=== PATIENT | female | born 1965 | race Caucasian/White ===

== ENCOUNTER 2017-11-01 13:11 | Day surgery (SDC) | payer MEDICAID ==
[~2017-11-01] VITALS: Ht 172.7 cm; Wt 134.1 kg
[~2017-11-01 13:11] MED LIST: ASTNS; DIPH-423 PO; FLUO15OI15 TP; INHA1EAC16 MC; LORA10TA7 PO; MONT10TA21 PO; OLAN2.5T3 PO; ONDA8TAB6 PO; PRED10TA PO; TEG100T PO; WALKERFR
[2017-11-01 13:26] VITALS: BP 139/70
[2017-11-01] MEDS ORDERED: MIDAZolam 5mg/5ml vial ONE (14:25)
[2017-11-01 14:30] VITALS: BP 138/80
[2017-11-01 14:40] VITALS: BP 125/68
== END 2017-11-01 14:55 | disposition home or self-care (01) ==
LOC: GI LAB 13:11
PROVIDERS: ATTEND Internal Medicine Gastroenterology
DX: K62.89 Other specified diseases of anus and rectum (principal); F10.21 Alcohol dependence, in remission; F41.9 Anxiety disorder, unspecified; M19.90 Unspecified osteoarthritis, unspecified site; Z98.51 Tubal ligation status; Z90.49 Acquired absence of other specified parts of digestive tract; Z93.2 Ileostomy status; Z88.0 Allergy status to penicillin; Z87.891 Personal history of nicotine dependence; Z88.6 Allergy status to analgesic agent; Z91.018 Allergy to other foods; Z79.899 Other long term (current) drug therapy; Z98.890 Other specified postprocedural states
CPT/HCPCS: 45330; J2250; A4620

== ENCOUNTER 2018-04-25 09:00 | Inpatient (IN) | payer MEDICAID ==
[~2018-04-25] VITALS: Ht 172.7 cm; Wt 130.6 kg
[2018-04-25 09:35] LABS: BASOPHILS % (AUTO) 0.3 % (0-1); EOSINOPHILS % (AUTO) 0 % (0-6); HEMATOCRIT 37.7 % (35.0-45.0); HEMOGLOBIN 12.7 g/dl (12.0-16.0); LYMPHOCYTES # (AUTO) 0.7 X10'3 (1.1-4.8); MEAN CORPUSCULAR HEMOGLOBIN 29.4 PG (27.0-31.0); MEAN CORPUSCULAR HGB CONC 33.6 % (33.0-36.5); MEAN CORPUSCULAR VOLUME 87.5 FL (78-98); MEAN PLATELET VOLUME 8.5 FL (7.4-10.4); MONOCYTES # (AUTO) 0.8 X10'3 (0-0.9); MONOCYTES % (AUTO) 9.7 % (2-12); NEUTROPHILS # (AUTO) 6.4 X10'3 (1.8-7.7); PLATELET COUNT 212 X10'3 (140-440); RED BLOOD COUNT 4.31 X10'6 (4.20-5.60); RED CELL DISTRIBUTION WIDTH 13.3 % (11.5-14.5); WHITE BLOOD COUNT 7.9 X10'3 (4.5-11.0)
[2018-04-25] MEDS ORDERED: normal saline 1000ML IV soln IVB ONE (09:40)
[2018-04-25 09:46] LABS: ALANINE AMINOTRANSFERASE 19 U/L (12-78); ALBUMIN 3.3 G/DL (3.4-5.0); ALBUMIN/GLOBULIN RATIO 0.6 (1.1-1.5); ALKALINE PHOSPHATASE 124 IU/L (46-116); ANION GAP 10 (8-16); ASPARTATE AMINO TRANSFERASE 23 U/L (10-37); BILIRUBIN,TOTAL 0.5 MG/DL (0.1-1.0); BLOOD UREA NITROGEN 12 MG/DL (7-18); BUN/CREATININE RATIO 12.2 (6.6-38.0); CHLORIDE 101 MMOL/L (99-107); CREATININE 0.98 MG/DL (0.40-0.90); GLUCOSE 138 MG/DL (70-104); POTASSIUM 3.8 MMOL/L (3.5-5.1); SODIUM 138 MMOL/L (135-145); TOTAL CARBON DIOXIDE 26.6 MMOL/L (24-32); eGFR 59 ML/MIN
[2018-04-25 09:47] LABS: URINE HCG NEGATIVE (NEG)
[2018-04-25 09:49] LABS: CLARITY,URINE CLOUDY (Clear); COLOR,URINE YELLOW (Yellow); GLUCOSE, URINE NEGATIVE (Neg); KETONES,URINE NEGATIVE (Neg); LEUKOCYTE ESTERASE ,URINE LARGE (Neg); NITRITES, URINE NEGATIVE (Neg); OCCULT BLOOD,URINE MODERATE (Neg); PROTEIN,URINE 30 mg/dl (Neg); UROBILINOGEN,URINE 0.2 E.U/dL (0.2-1.0)
[2018-04-25 09:53] LABS: UA COLLECTION TYPE CLN CATCH MIDSTREAM
[2018-04-25] MEDS ORDERED: morphine 4 MG/ML inj SYRINge IV ONE (09:55)
[2018-04-25] MEDS ORDERED: ondansetron/PF 4mg/2ml inj IV ONE (09:55)
[2018-04-25 09:56] LABS: BACTERIA,URINE 3+ /HPF (Neg); SQUAMOUS EPITHELIAL CELL,UR FEW /LPF (FEW); WBC,URINE TNTC /HPF (0-4)
[2018-04-25 09:57] LABS: WBC CLUMPS,URINE MODERATE /HPF (NEGATIVE)
[2018-04-25 10:20] LABS: INR 1.2 INR; PROTHROMBIN TIME 11.6 SECONDS (9.0-12.0)
[2018-04-25] MEDS ORDERED: acetaminophen 325mg tablet PO ONE ×2 (10:20→21:10)
[2018-04-25] MEDS ORDERED: gentamicin inj 500 MG in normal saline 100ml IV soln 100 ML IV STA (12:50)
[2018-04-25] MEDS ORDERED: levoFLOXACIN-Levaquin 500mg/D5 100 ML IV ONE (13:00)
[2018-04-25] MEDS ORDERED: metroNIDAZOLE 500mg tablet PO ONE (13:00)
[2018-04-25] MEDS ORDERED: PROM25TA14 PEG (13:48)
[2018-04-25] MEDS ORDERED: PANT40TA4 PO (13:48)
[2018-04-25] MEDS ORDERED: OMEP40CA37 PO (13:48)
[2018-04-25] MEDS ORDERED: MYL80T PO (13:48)
[2018-04-25] MEDS ORDERED: pneumococcal 23-VAL P-sac vacc 25 mcg/0.5ml vial IMVAC ONE (14:35)
[2018-04-25] MEDS ORDERED: montelukast 10mg tablet PO PRN (14:55)
[2018-04-25] MEDS ORDERED: HYDROcodone/acetaminophen 5mg/325mg tablet PO PRN (15:00)
[2018-04-25] MEDS ORDERED: magnesium 4gm in 100ml NS 100 ML IV PRN (15:00)
[2018-04-25] MEDS ORDERED: HYDROmorphone 1 mg/ml syringe IV PRN ×2 (15:00)
[2018-04-25] MEDS ORDERED: magnesium hydroxide 30ml (MOM) UD suspension PO PRN (15:00)
[2018-04-25] MEDS ORDERED: magnesium Cl slow-release 64mg tablet PO PRN (15:00)
[2018-04-25] MEDS ORDERED: metoclopramide 5 mg/ml inj IV PRN (15:00)
[2018-04-25] MEDS: K and/or MAG REPLACEMENT MC SCH (15:00)
[2018-04-25] MEDS ORDERED: potassium Cl 20 mEq SR tablet PO PRN ×2 (15:00)
[2018-04-25] MEDS ORDERED: magnesium 1gm/100ml D5W IVPB 100 ML IV PRN (15:00)
[2018-04-25] MEDS ORDERED: morphine 2 MG/ML inj. syringe IV PRN ×2 (15:00)
[2018-04-25] MEDS ORDERED: acetaminophen 325mg tablet PO PRN ×2 (15:00)
[2018-04-25] MEDS ORDERED: diphenhydrAMINE 50 mg/ml inj IV PRN (15:00)
[2018-04-25] MEDS ORDERED: acetaminophen 650mg rectal suppository RC PRN (15:00)
[2018-04-25] MEDS ORDERED: HYDROcodone/acetaminophen 10/325mg tab PO PRN (15:00)
[2018-04-25] MEDS ORDERED: diphenhydrAMINE 25mg capsule PO PRN (15:00)
[2018-04-25] MEDS ORDERED: potassium Cl 40MEQ/NS 500ml 500 ML IV PRN ×2 (15:00)
[2018-04-25] MEDS ORDERED: mag hydrox/Alum hydrox/simeth 30ml oral suspension PO PRN (15:00)
[2018-04-25 20:00] VITALS: BP 141/81
[2018-04-25] MEDS: metroNIDAZOLE-Flagyl 500mg/NS 100 ML IV SCH (20:40)
[2018-04-25] MEDS: dextrose 5%-normal saline 1,000 ML IV SCH ×2 (20:47→23:32)
[2018-04-25] MEDS ORDERED: temazepam 15mg capsule PO PRN (21:00)
[2018-04-25] MEDS: simethicone 80mg chew tab PO SCH ×2 (21:00→21:55)
[2018-04-25] MEDS ORDERED: normal saline 500ml IV soln 1,000 ML IV ONE (21:10)
[2018-04-25] MEDS: pantoprazole 40mg Tablet.DR PO SCH (21:55)
[2018-04-25] MEDS: olanzapine 10mg tablet PO SCH (21:55)
[2018-04-25] MEDS: carBAMazepine 100mg chewable tablet PO SCH (21:58)
[2018-04-25] MEDS: ondansetron/PF 4mg/2ml inj IV PRN (22:00)
[2018-04-25] MEDS: heparin, porcine 5000 units/ml vial SQ SCH (22:03)
[2018-04-26] VITALS (21 sets, daily range): BP systolic 117–153; BP diastolic 60–86
[2018-04-26] MEDS: metroNIDAZOLE-Flagyl 500mg/NS 100 ML IV SCH ×3 (01:21→16:39)
[2018-04-26] MEDS: ondansetron/PF 4mg/2ml inj IV PRN ×2 (05:52→12:10)
[2018-04-26] MEDS: K and/or MAG REPLACEMENT MC SCH (07:43)
[2018-04-26] MEDS: levoFLOXACIN-Levaquin 750MG/D5 150 ML IV SCH (09:00)
[2018-04-26] MEDS: dextrose 5%-normal saline 1,000 ML IV SCH ×3 (09:13→20:23)
[2018-04-26] MEDS: pantoprazole 40mg Tablet.DR PO SCH ×2 (09:16→20:38)
[2018-04-26] MEDS: heparin, porcine 5000 units/ml vial SQ SCH ×2 (09:16→20:38)
[2018-04-26] MEDS: simethicone 80mg chew tab PO SCH ×4 (09:17→20:38)
[2018-04-26] MEDS: carBAMazepine 100mg chewable tablet PO SCH ×2 (09:17→20:39)
[2018-04-26 09:19] LABS: BASOPHILS % (AUTO) 0.1 % (0-1); EOSINOPHILS % (AUTO) 0 % (0-6); HEMOGLOBIN 11.4 g/dl (12.0-16.0); LYMPHOCYTES # (AUTO) 0.6 X10'3 (1.1-4.8); LYMPHOCYTES % (AUTO) 6.4 % (21-51); MEAN CORPUSCULAR HEMOGLOBIN 29.4 PG (27.0-31.0); MEAN CORPUSCULAR HGB CONC 33.4 % (33.0-36.5); MEAN CORPUSCULAR VOLUME 87.8 FL (78-98); MONOCYTES # (AUTO) 1.1 X10'3 (0-0.9); MONOCYTES % (AUTO) 13.1 % (2-12); NEUTROPHILS % (AUTO) 80.4 % (42-75); PLATELET COUNT 171 X10'3 (140-440); RED BLOOD COUNT 3.87 X10'6 (4.20-5.60); RED CELL DISTRIBUTION WIDTH 13.3 % (11.5-14.5); WHITE BLOOD COUNT 8.7 X10'3 (4.5-11.0)
[2018-04-26 09:32] LABS: ALANINE AMINOTRANSFERASE 23 U/L (12-78); ALBUMIN 2.7 G/DL (3.4-5.0); ALBUMIN/GLOBULIN RATIO 0.5 (1.1-1.5); ALKALINE PHOSPHATASE 101 IU/L (46-116); ANION GAP 9 (8-16); ASPARTATE AMINO TRANSFERASE 55 U/L (10-37); BILIRUBIN,TOTAL 0.5 MG/DL (0.1-1.0); BLOOD UREA NITROGEN 10 MG/DL (7-18); CALCIUM 8.2 MG/DL (8.5-10.1); CHLORIDE 103 MMOL/L (99-107); CREATININE 0.91 MG/DL (0.40-0.90); GLUCOSE 127 MG/DL (70-104); MAGNESIUM 1.8 MG/DL (1.5-2.4); PHOSPHORUS 2.5 MG/DL (2.3-4.5); POTASSIUM 3.6 MMOL/L (3.5-5.1); SODIUM 138 MMOL/L (135-145); TOTAL CARBON DIOXIDE 26.2 MMOL/L (24-32); TOTAL PROTEIN 8.1 G/DL (6.4-8.2); eGFR 65 ML/MIN
[2018-04-26] MEDS ORDERED: ringers solution, lacted 1,000 ML IV SCH (13:26)
[2018-04-26] MEDS ORDERED: proCHLORperazine 10 MG/2 ml inj IV PRN (13:30)
[2018-04-26] MEDS ORDERED: morphine 4 MG/ML inj SYRINge IV PRN ×2 (13:30)
[2018-04-26] MEDS ORDERED: meperidine/PF 25mg/ml syringe IV PRN ×3 (13:30)
[2018-04-26] MEDS ORDERED: ondansetron/PF 4mg/2ml inj IV PRN (13:30)
[2018-04-26] MEDS ORDERED: iohexol 300 MG/1 ML 50ml polymer ONE (13:37)
[2018-04-26] MEDS ORDERED: dexamethasone sod phosphate 10mg/ml inj ONE (14:17)
[2018-04-26] MEDS ORDERED: sevoflurane 250ml liquid IH ONE (14:17)
[2018-04-26] MEDS ORDERED: fentaNYL/PF 50MCG/1 ML 2ML syringe ONE (14:23)
[2018-04-26] MEDS ORDERED: propofol inj 20 ML IV ONE (14:24)
[2018-04-26] MEDS ORDERED: midazolam 2 mg/2 ml injection ONE (14:24)
[2018-04-26] MEDS ORDERED: LIDOcaine 2% (20mg/ml) 5ml vial ONE (14:24)
[2018-04-26] MEDS ORDERED: ondansetron/PF 4mg/2ml inj ONE (14:48)
[2018-04-26] MEDS: olanzapine 10mg tablet PO SCH (20:38)
[2018-04-27] VITALS: BP 122/76
[2018-04-27] MEDS: metroNIDAZOLE-Flagyl 500mg/NS 100 ML IV SCH ×2 (00:32→07:49)
[2018-04-27 05:46] LABS: BASOPHILS % (AUTO) 0 % (0-1); EOSINOPHILS % (AUTO) 0.8 % (0-6); HEMATOCRIT 31.1 % (35.0-45.0); HEMOGLOBIN 10.1 g/dl (12.0-16.0); LYMPHOCYTES # (AUTO) 0.6 X10'3 (1.1-4.8); LYMPHOCYTES % (AUTO) 10.4 % (21-51); MEAN CORPUSCULAR HEMOGLOBIN 28.9 PG (27.0-31.0); MEAN CORPUSCULAR HGB CONC 32.4 % (33.0-36.5); MEAN CORPUSCULAR VOLUME 89.1 FL (78-98); MEAN PLATELET VOLUME 8.9 FL (7.4-10.4); MONOCYTES # (AUTO) 0.7 X10'3 (0-0.9); NEUTROPHILS # (AUTO) 4.8 X10'3 (1.8-7.7); NEUTROPHILS % (AUTO) 76.8 % (42-75); PLATELET COUNT 156 X10'3 (140-440); RED BLOOD COUNT 3.49 X10'6 (4.20-5.60); RED CELL DISTRIBUTION WIDTH 13.1 % (11.5-14.5); WHITE BLOOD COUNT 6.2 X10'3 (4.5-11.0)
[2018-04-27 06:11] LABS: ALANINE AMINOTRANSFERASE 20 U/L (12-78); ALBUMIN 2.3 G/DL (3.4-5.0); ALBUMIN/GLOBULIN RATIO 0.5 (1.1-1.5); ALKALINE PHOSPHATASE 80 IU/L (46-116); ANION GAP 5 (8-16); ASPARTATE AMINO TRANSFERASE 37 U/L (10-37); BILIRUBIN,TOTAL 0.2 MG/DL (0.1-1.0); BLOOD UREA NITROGEN 11 MG/DL (7-18); BUN/CREATININE RATIO 13.9 (6.6-38.0); CALCIUM 8.4 MG/DL (8.5-10.1); CHLORIDE 107 MMOL/L (99-107); CREATININE 0.79 MG/DL (0.40-0.90); GLUCOSE 135 MG/DL (70-104); PHOSPHORUS 2.2 MG/DL (2.3-4.5); POTASSIUM 3.6 MMOL/L (3.5-5.1); SODIUM 142 MMOL/L (135-145); TOTAL CARBON DIOXIDE 29.7 MMOL/L (24-32); TOTAL PROTEIN 7.4 G/DL (6.4-8.2); eGFR 76 ML/MIN
[2018-04-27] MEDS: dextrose 5%-normal saline 1,000 ML IV SCH ×3 (06:39→21:16)
[2018-04-27] MEDS: simethicone 80mg chew tab PO SCH ×4 (07:42→20:48)
[2018-04-27] MEDS: pantoprazole 40mg Tablet.DR PO SCH ×2 (07:42→20:51)
[2018-04-27] MEDS: heparin, porcine 5000 units/ml vial SQ SCH ×2 (07:45→20:48)
[2018-04-27] MEDS: carBAMazepine 100mg chewable tablet PO SCH ×2 (07:50→20:48)
[2018-04-27 08:00] VITALS: BP 134/97
[2018-04-27] MEDS: K and/or MAG REPLACEMENT MC SCH (08:00)
[2018-04-27] MEDS: levoFLOXACIN-Levaquin 750MG/D5 150 ML IV SCH (09:27)
[2018-04-27] MEDS ORDERED: CefTRIAXone/D5W-Rocephin 1gm 50 ML IV SCH (10:10)
[2018-04-27] MEDS ORDERED: pneumococcal 23-VAL P-sac vacc 25 mcg/0.5ml vial IMVAC ONE (11:00)
[2018-04-27 11:34] VITALS: BP 148/84
[2018-04-27] MEDS: metroNIDAZOLE 500mg tablet PO SCH (16:07)
[2018-04-27 18:00] VITALS: BP 130/80
[2018-04-27] MEDS: olanzapine 10mg tablet PO SCH (20:49)
[2018-04-27] MEDS: LORazepam 1 MG tablet PO PRN (20:49)
[2018-04-27] MEDS: lactobacillus rhamnosus 10,000 MMU CELLS/CAPSULE PO SCH (20:51)
[2018-04-28] VITALS: BP 130/73
[2018-04-28 07:54] VITALS: BP 132/92
[2018-04-28] MEDS ORDERED: cefuroxime axetil 250mg tablet PO SCH (08:00)
[2018-04-28] MEDS: K and/or MAG REPLACEMENT MC SCH (08:12)
[2018-04-28] MEDS: metroNIDAZOLE 500mg tablet PO SCH ×3 (08:42→15:22)
[2018-04-28] MEDS: lactobacillus rhamnosus 10,000 MMU CELLS/CAPSULE PO SCH ×2 (08:43→20:00)
[2018-04-28] MEDS: simethicone 80mg chew tab PO SCH ×4 (08:43→21:07)
[2018-04-28] MEDS: carBAMazepine 100mg chewable tablet PO SCH ×2 (08:43→21:05)
[2018-04-28] MEDS: pantoprazole 40mg Tablet.DR PO SCH ×2 (08:43→20:00)
[2018-04-28] MEDS: heparin, porcine 5000 units/ml vial SQ SCH ×2 (08:44→21:08)
[2018-04-28 08:59] LABS: BASOPHILS % (AUTO) 0.4 % (0-1); EOSINOPHILS % (AUTO) 0 % (0-6); HEMATOCRIT 32.4 % (35.0-45.0); HEMOGLOBIN 10.9 g/dl (12.0-16.0); LYMPHOCYTES # (AUTO) 0.6 X10'3 (1.1-4.8); LYMPHOCYTES % (AUTO) 13.8 % (21-51); MEAN CORPUSCULAR HEMOGLOBIN 29.4 PG (27.0-31.0); MEAN CORPUSCULAR HGB CONC 33.5 % (33.0-36.5); MEAN CORPUSCULAR VOLUME 87.9 FL (78-98); MEAN PLATELET VOLUME 9.1 FL (7.4-10.4); MONOCYTES # (AUTO) 0.4 X10'3 (0-0.9); MONOCYTES % (AUTO) 9.7 % (2-12); NEUTROPHILS # (AUTO) 3.4 X10'3 (1.8-7.7); NEUTROPHILS % (AUTO) 76.1 % (42-75); PLATELET COUNT 208 X10'3 (140-440); RED BLOOD COUNT 3.69 X10'6 (4.20-5.60); RED CELL DISTRIBUTION WIDTH 13.1 % (11.5-14.5); WHITE BLOOD COUNT 4.5 X10'3 (4.5-11.0)
[2018-04-28 10:19] LABS: ALANINE AMINOTRANSFERASE 26 U/L (12-78); ALBUMIN 2.8 G/DL (3.4-5.0); ALBUMIN/GLOBULIN RATIO 0.5 (1.1-1.5); ALKALINE PHOSPHATASE 95 IU/L (46-116); ANION GAP 8 (8-16); ASPARTATE AMINO TRANSFERASE 30 U/L (10-37); BILIRUBIN,TOTAL 0.2 MG/DL (0.1-1.0); BLOOD UREA NITROGEN 14 MG/DL (7-18); BUN/CREATININE RATIO 15.1 (6.6-38.0); CALCIUM 8.6 MG/DL (8.5-10.1); CHLORIDE 104 MMOL/L (99-107); CREATININE 0.93 MG/DL (0.40-0.90); GLUCOSE 128 MG/DL (70-104); MAGNESIUM 1.7 MG/DL (1.5-2.4); PHOSPHORUS 2.2 MG/DL (2.3-4.5); POTASSIUM 3.1 MMOL/L (3.5-5.1); SODIUM 142 MMOL/L (135-145); TOTAL CARBON DIOXIDE 29.8 MMOL/L (24-32); TOTAL PROTEIN 8.3 G/DL (6.4-8.2); eGFR 63 ML/MIN
[2018-04-28 12:02] VITALS: BP 147/86
[2018-04-28] MEDS ORDERED: magnesium Cl slow-release 64mg tablet PO PRN (15:10)
[2018-04-28] MEDS ORDERED: magnesium 4gm in 100ml NS 100 ML IV PRN (15:10)
[2018-04-28] MEDS ORDERED: potassium Cl 20 mEq SR tablet PO PRN (15:10)
[2018-04-28] MEDS ORDERED: magnesium 1gm/100ml D5W IVPB 100 ML IV PRN (15:10)
[2018-04-28] MEDS ORDERED: potassium Cl 40MEQ/NS 500ml 500 ML IV PRN ×2 (15:10)
[2018-04-28] MEDS: potassium Cl 20 mEq SR tablet PO PRN ×2 (15:22→21:10)
[2018-04-28] MEDS: CefTRIAXone/D5W-Rocephin 1gm 50 ML IV SCH (17:31)
[2018-04-28] MEDS: dextrose 5%-normal saline 1,000 ML IV SCH (17:40)
[2018-04-28 18:00] VITALS: BP 136/86
[2018-04-28] MEDS ORDERED: metroNIDAZOLE-Flagyl 500mg/NS 100 ML IV SCH (18:55)
[2018-04-28] MEDS: olanzapine 10mg tablet PO SCH (21:00)
[2018-04-29] VITALS: BP 121/78
[2018-04-29] MEDS: metroNIDAZOLE 500mg tablet PO SCH ×5 (01:12→17:32)
[2018-04-29 02:17] LABS: BASOPHILS % (AUTO) 0.5 % (0-1); EOSINOPHILS % (AUTO) 0 % (0-6); HEMATOCRIT 31.8 % (35.0-45.0); HEMOGLOBIN 10.6 g/dl (12.0-16.0); LYMPHOCYTES # (AUTO) 0.7 X10'3 (1.1-4.8); MEAN CORPUSCULAR HEMOGLOBIN 29.2 PG (27.0-31.0); MEAN CORPUSCULAR HGB CONC 33.2 % (33.0-36.5); MEAN CORPUSCULAR VOLUME 87.8 FL (78-98); MEAN PLATELET VOLUME 8.5 FL (7.4-10.4); MONOCYTES # (AUTO) 0.4 X10'3 (0-0.9); NEUTROPHILS % (AUTO) 72.5 % (42-75); PLATELET COUNT 237 X10'3 (140-440); RED BLOOD COUNT 3.62 X10'6 (4.20-5.60); RED CELL DISTRIBUTION WIDTH 13.3 % (11.5-14.5); WHITE BLOOD COUNT 4.1 X10'3 (4.5-11.0)
[2018-04-29 02:25] LABS: ALANINE AMINOTRANSFERASE 24 U/L (12-78); ALBUMIN 2.5 G/DL (3.4-5.0); ALBUMIN/GLOBULIN RATIO 0.5 (1.1-1.5); ALKALINE PHOSPHATASE 92 IU/L (46-116); ANION GAP 4 (8-16); ASPARTATE AMINO TRANSFERASE 22 U/L (10-37); BILIRUBIN,TOTAL 0.2 MG/DL (0.1-1.0); BLOOD UREA NITROGEN 14 MG/DL (7-18); BUN/CREATININE RATIO 17.9 (6.6-38.0); CALCIUM 8.7 MG/DL (8.5-10.1); CHLORIDE 106 MMOL/L (99-107); CREATININE 0.78 MG/DL (0.40-0.90); GLUCOSE 136 MG/DL (70-104); MAGNESIUM 1.6 MG/DL (1.5-2.4); PHOSPHORUS 2.7 MG/DL (2.3-4.5); POTASSIUM 3.7 MMOL/L (3.5-5.1); SODIUM 140 MMOL/L (135-145); TOTAL CARBON DIOXIDE 29.8 MMOL/L (24-32); TOTAL PROTEIN 7.7 G/DL (6.4-8.2); eGFR 77 ML/MIN
[2018-04-29 07:37] VITALS: BP 166/91
[2018-04-29] MEDS: K and/or MAG REPLACEMENT MC SCH (08:00)
[2018-04-29] MEDS: heparin, porcine 5000 units/ml vial SQ SCH ×3 (08:00→20:18)
[2018-04-29] MEDS: simethicone 80mg chew tab PO SCH ×4 (08:24→20:28)
[2018-04-29] MEDS: carBAMazepine 100mg chewable tablet PO SCH ×2 (08:24→20:21)
[2018-04-29] MEDS: lactobacillus rhamnosus 10,000 MMU CELLS/CAPSULE PO SCH ×2 (08:24→20:00)
[2018-04-29] MEDS: pantoprazole 40mg Tablet.DR PO SCH ×2 (08:25→20:00)
[2018-04-29] MEDS: CefTRIAXone/D5W-Rocephin 1gm 50 ML IV SCH (08:32)
[2018-04-29] MEDS: dextrose 5%-normal saline 1,000 ML IV SCH (08:32)
[2018-04-29 11:00] VITALS: BP 127/73
[2018-04-29 20:00] VITALS: BP 125/59
[2018-04-29] MEDS: ondansetron/PF 4mg/2ml inj IV PRN (20:14)
[2018-04-29] MEDS: olanzapine 10mg tablet PO SCH (20:29)
[2018-04-30] VITALS: BP 134/85
[2018-04-30 05:19] LABS: BASOPHILS % (AUTO) 0.4 % (0-1); EOSINOPHILS % (AUTO) 0 % (0-6); HEMATOCRIT 31.6 % (35.0-45.0); HEMOGLOBIN 10.5 g/dl (12.0-16.0); LYMPHOCYTES # (AUTO) 0.3 X10'3 (1.1-4.8); MEAN CORPUSCULAR HEMOGLOBIN 29.1 PG (27.0-31.0); MEAN CORPUSCULAR HGB CONC 33.2 % (33.0-36.5); MEAN CORPUSCULAR VOLUME 87.7 FL (78-98); MEAN PLATELET VOLUME 8.7 FL (7.4-10.4); MONOCYTES # (AUTO) 0.4 X10'3 (0-0.9); MONOCYTES % (AUTO) 8.9 % (2-12); NEUTROPHILS # (AUTO) 3.6 X10'3 (1.8-7.7); NEUTROPHILS % (AUTO) 82.7 % (42-75); PLATELET COUNT 267 X10'3 (140-440); RED BLOOD COUNT 3.61 X10'6 (4.20-5.60); RED CELL DISTRIBUTION WIDTH 13.4 % (11.5-14.5); WHITE BLOOD COUNT 4.3 X10'3 (4.5-11.0)
[2018-04-30 05:26] LABS: ALANINE AMINOTRANSFERASE 21 U/L (12-78); ALBUMIN 2.4 G/DL (3.4-5.0); ALBUMIN/GLOBULIN RATIO 0.5 (1.1-1.5); ALKALINE PHOSPHATASE 88 IU/L (46-116); ANION GAP 7 (8-16); ASPARTATE AMINO TRANSFERASE 14 U/L (10-37); BILIRUBIN,TOTAL 0.2 MG/DL (0.1-1.0); BLOOD UREA NITROGEN 13 MG/DL (7-18); BUN/CREATININE RATIO 19.1 (6.6-38.0); CALCIUM 8.2 MG/DL (8.5-10.1); CHLORIDE 106 MMOL/L (99-107); CREATININE 0.68 MG/DL (0.40-0.90); GLUCOSE 118 MG/DL (70-104); MAGNESIUM 1.6 MG/DL (1.5-2.4); POTASSIUM 3.7 MMOL/L (3.5-5.1); SODIUM 143 MMOL/L (135-145); TOTAL CARBON DIOXIDE 29.9 MMOL/L (24-32); TOTAL PROTEIN 7.4 G/DL (6.4-8.2); eGFR > 90 ML/MIN
[2018-04-30 05:36] LABS: LARGE PLATELETS FEW; PLATELET ESTIMATE NORMAL
[2018-04-30 07:04] VITALS: BP 139/88
[2018-04-30] MEDS: simethicone 80mg chew tab PO SCH ×3 (08:00→15:32)
[2018-04-30] MEDS: carBAMazepine 100mg chewable tablet PO SCH ×2 (08:00→23:59)
[2018-04-30] MEDS: pantoprazole 40mg Tablet.DR PO SCH (08:00)
[2018-04-30] MEDS: lactobacillus rhamnosus 10,000 MMU CELLS/CAPSULE PO SCH (08:00)
[2018-04-30] MEDS: K and/or MAG REPLACEMENT MC SCH (08:00)
[2018-04-30] MEDS: heparin, porcine 5000 units/ml vial SQ SCH ×2 (08:00→23:52)
[2018-04-30] MEDS: metroNIDAZOLE 500mg tablet PO SCH ×3 (08:00→23:57)
[2018-04-30] MEDS: CefTRIAXone/D5W-Rocephin 1gm 50 ML IV SCH (09:29)
[2018-04-30 11:32] VITALS: BP 152/80
[2018-04-30] MEDS: LORazepam 1 MG tablet PO PRN (15:31)
[2018-04-30 19:00] VITALS: BP 143/78
[2018-05-01] VITALS: BP 120/77
[2018-05-01] MEDS: olanzapine 10mg tablet PO SCH
[2018-05-01] MEDS: lactobacillus rhamnosus 10,000 MMU CELLS/CAPSULE PO SCH ×2 (00:04→08:55)
[2018-05-01] MEDS: LORazepam 1 MG tablet PO PRN (00:54)
[2018-05-01 07:40] VITALS: BP 144/88
[2018-05-01] MEDS: K and/or MAG REPLACEMENT MC SCH (08:00)
[2018-05-01] MEDS: pantoprazole 40mg Tablet.DR PO SCH ×2 (08:55)
[2018-05-01] MEDS: metroNIDAZOLE 500mg tablet PO SCH (08:55)
[2018-05-01] MEDS: simethicone 80mg chew tab PO SCH ×2 (08:55)
[2018-05-01] MEDS: CefTRIAXone/D5W-Rocephin 1gm 50 ML IV SCH (08:55)
[2018-05-01] MEDS: heparin, porcine 5000 units/ml vial SQ SCH (08:56)
[2018-05-01] MEDS: carBAMazepine 100mg chewable tablet PO SCH (08:56)
[2018-05-01 11:58] VITALS: BP 131/87
[2018-05-01] MEDS ORDERED: LACT1CAP26 PO (12:16)
[2018-05-01] MEDS ORDERED: CEFD300C3 PO (12:16)
[2018-05-01] MEDS ORDERED: METR500T4 PO (12:16)
== END 2018-05-01 12:56 | disposition home health service (06) | DRG 720 ==
LOC: ER 09:01 → ED HOLD 14:57 → SUR 3N 16:31 → PACU 04-26 13:40 → SUR 3N 04-26 15:49
PROVIDERS: ADMIT Family Medicine; ATTEND Family Medicine
PROC: BT171ZZ Fluoroscopy of Left Ureter using Low Osmolar Contrast (ICD-10-PCS; 2018-04-26)
PROC: 0T778DZ Dilation of Left Ureter with Intraluminal Device, Via Natural or Artificial Opening Endoscopic (ICD-10-PCS; principal; 2018-04-26 14:17)
PROC: 3E02340 Introduction of Influenza Vaccine into Muscle, Percutaneous Approach (ICD-10-PCS; 2018-04-27)
PROC: 3E0234Z Introduction of Serum, Toxoid and Vaccine into Muscle, Percutaneous Approach (ICD-10-PCS; 2018-04-27)
DX: A41.9 Sepsis, unspecified organism (principal); E87.2 Acidosis; E66.01 Morbid (severe) obesity due to excess calories; Z68.41 Body mass index [BMI] 40.0-44.9, adult; K57.32 Diverticulitis of large intestine without perforation or abscess without bleeding; E03.9 Hypothyroidism, unspecified; B96.4 Proteus (mirabilis) (morganii) as the cause of diseases classified elsewhere; F32.9 Major depressive disorder, single episode, unspecified; F41.9 Anxiety disorder, unspecified; G40.909 Epilepsy, unspecified, not intractable, without status epilepticus; R19.7 Diarrhea, unspecified; K21.9 Gastro-esophageal reflux disease without esophagitis; N13.6 Pyonephrosis; Z79.899 Other long term (current) drug therapy; Z82.3 Family history of stroke; Z90.49 Acquired absence of other specified parts of digestive tract; Z93.2 Ileostomy status; Z23 Encounter for immunization; Z88.6 Allergy status to analgesic agent; Z88.0 Allergy status to penicillin; Z91.018 Allergy to other foods; Z98.51 Tubal ligation status; Z81.1 Family history of alcohol abuse and dependence
CPT/HCPCS: 36415; 71045; 74176; 76001; 80053; 80156; 81001; 81025; 83605; 83735; 84100; 84145; 85025; 85610; 87040; 87070; 87077; 87088; 87186; 90732; 96361; 96365; 96375; 97116; 97161; 97530; 99285; A4402; C1758; C1769; C2617; G0378; J0696; J1100; J1170; J1580; J1644; J1956; J2001; J2250; J2270; J2405; J2704; J3010; J3490; J7030; J7042; J7120; Q2037; Q9967

== ENCOUNTER 2020-03-29 13:49 | Inpatient (IN) | payer MEDICAID ==
[~2020-03-29] VITALS: Ht 172.7 cm; Wt 132.7 kg
[~2020-03-29 13:49] MED LIST changes: -ASTNS; -DIPH-423 PO; -FLUO15OI15 TP; -INHA1EAC16 MC; +LACT1CAP26 PO; -LORA10TA7 PO; +METR-159 PO; +MYL80T PO; -ONDA8TAB6 PO; +PANT40TA54 PO; -PRED10TA PO; +PROM25TA14 PEG; -WALKERFR
[2020-03-29] MEDS ORDERED: acetaminophen 1,000mg/100ml IV 100 ML IV ONE (14:15)
[2020-03-29] MEDS ORDERED: ondansetron/PF 4mg/2ml inj IV ONE (14:15)
[2020-03-29] MEDS ORDERED: normal saline 1000ML IV soln IV ONE (14:15)
[2020-03-29 15:06] LABS: EOSINOPHILS % (AUTO) 0 % (0-6); HEMOGLOBIN 12.1 g/dl (12.0-16.0); LYMPHOCYTES # (AUTO) 0.5 X10'3 (1.1-4.8); LYMPHOCYTES % (AUTO) 4.8 % (21-51); MONOCYTES # (AUTO) 0.8 X10'3 (0-0.9)
[2020-03-29 15:08] LABS: BASOPHILS % (AUTO) 0.3 % (0-1); MEAN CORPUSCULAR HEMOGLOBIN 29.6 PG (27.0-31.0); MEAN CORPUSCULAR HGB CONC 33.6 g/dL (33.0-36.5); MEAN CORPUSCULAR VOLUME 88.1 FL (78-98); MEAN PLATELET VOLUME 8.6 FL (7.4-10.4); MONOCYTES % (AUTO) 7.2 % (2-12); NEUTROPHILS # (AUTO) 9.4 X10'3 (1.8-7.7); NEUTROPHILS % (AUTO) 87.7 % (42-75); PLATELET COUNT 236 X10'3 (140-440); RED BLOOD COUNT 4.09 X10'6 (4.20-5.60); RED CELL DISTRIBUTION WIDTH 14.4 % (11.5-14.5); WHITE BLOOD COUNT 10.8 X10'3 (4.5-11.0)
[2020-03-29 15:22] LABS: ALANINE AMINOTRANSFERASE 32 U/L (12-78); ALBUMIN 3.5 G/DL (3.4-5.0); ALBUMIN/GLOBULIN RATIO 0.6 (1.1-1.5); ALKALINE PHOSPHATASE 115 IU/L (46-116); ANION GAP 9 (8-16); ASPARTATE AMINO TRANSFERASE 19 U/L (10-37); BILIRUBIN,TOTAL 0.3 MG/DL (0.1-1.0); BLOOD UREA NITROGEN 14 MG/DL (7-18); BUN/CREATININE RATIO 12.3 (6.6-38.0); CALCIUM 9.1 MG/DL (8.5-10.1); CHLORIDE 98 MMOL/L (99-107); CREATININE 1.14 MG/DL (0.40-0.90); GLUCOSE 137 MG/DL (70-104); LIPASE 68 U/L (73-393); MAGNESIUM 1.8 MG/DL (1.5-2.4); POTASSIUM 4.1 MMOL/L (3.5-5.1); SODIUM 135 MMOL/L (135-145); TOTAL CARBON DIOXIDE 27.9 MMOL/L (24-32); eGFR 50 ML/MIN
[2020-03-29] MEDS ORDERED: ketorolac trometh. 30mg/ml inj. IV ONE (15:40)
[2020-03-29 16:09] LABS: CLARITY,URINE CLEAR (Clear); COLOR,URINE YELLOW (Yellow); GLUCOSE, URINE NEGATIVE (Neg); KETONES,URINE NEGATIVE (Neg); LEUKOCYTE ESTERASE ,URINE SMALL (Neg); NITRITES, URINE NEGATIVE (Neg); OCCULT BLOOD,URINE LARGE (Neg); PROTEIN,URINE 30 mg/dl (Neg); UROBILINOGEN,URINE 0.2 E.U/dL (0.2-1.0)
[2020-03-29 16:14] LABS: UA COLLECTION TYPE STRAIGHT CATH
[2020-03-29 16:15] LABS: BACTERIA,URINE FEW /HPF (Neg); MUCUS STRANDS FEW /LPF (Neg); SQUAMOUS EPITHELIAL CELL,UR MANY /LPF (FEW)
[2020-03-29] MEDS ORDERED: morphine 4 MG/ML inj SYRINge IV ONE (16:20)
[2020-03-29] MEDS ORDERED: levoFLOXACIN-Levaquin 750MG/D5 150 ML IV ONE (16:30)
[2020-03-29] MEDS ORDERED: NAPR-56 PO (16:33)
[2020-03-29] MEDS ORDERED: SUCR1TAB34 PO (16:41)
[2020-03-29] MEDS ORDERED: ONDA4TAB12 PO (16:41)
[2020-03-29] MEDS ORDERED: ARIP2TAB20 PO (16:41)
[2020-03-29] MEDS ORDERED: POTA10TA10 PO (16:41)
[2020-03-29] MEDS ORDERED: FURO-150 PO (16:41)
[2020-03-29] MEDS ORDERED: SIME80TA PO (16:41)
[2020-03-29] MEDS ORDERED: CHOL100046 PO (16:41)
[2020-03-29] MEDS ORDERED: morphine 2 MG/ML inj. syringe IV PRN (17:00)
[2020-03-29] MEDS ORDERED: potassium Cl 20 mEq SR tablet PO PRN ×2 (17:00)
[2020-03-29] MEDS ORDERED: potassium CL 10mEq/100ml bag 100 ML IV PRN ×2 (17:00)
[2020-03-29] MEDS ORDERED: mag hydrox/Alum hydrox/simeth 30ml oral suspension PO PRN (17:00)
[2020-03-29] MEDS ORDERED: magnesium 4gm in 100ml NS 100 ML IV PRN (17:00)
[2020-03-29] MEDS ORDERED: magnesium 2GM in 50ml NS 50 ML IV PRN (17:00)
[2020-03-29] MEDS ORDERED: ondansetron/PF 4mg/2ml inj IV PRN (17:00)
[2020-03-29] MEDS ORDERED: magnesium hydroxide 30ml (MOM) UD suspension PO PRN (17:00)
[2020-03-29] MEDS ORDERED: ondansetron 4mg rapidly disintigrating tab PO PRN (18:00)
[2020-03-29] MEDS ORDERED: montelukast 10mg tablet PO PRN (18:00)
--- NOTE | 2020-03-29 18:03 | NUR ---
I have received report from Gary ED RN and had the opportunity to ask questions and assume patient care.
[2020-03-29 18:15] VITALS: BP 123/69
[2020-03-29] MEDS: K and/or MAG REPLACEMENT MC SCH (20:00)
[2020-03-29] MEDS: sucralfate 1 gm tablet PO SCH (20:19)
[2020-03-29] MEDS: simethicone 80mg chew tab PO SCH (20:19)
[2020-03-29] MEDS: pantoprazole 40mg Tablet.DR PO SCH (20:19)
[2020-03-29] MEDS: OLANZAPINE 5 MG TABLET PO SCH (20:19)
[2020-03-29] MEDS: morphine 2 MG/ML inj. syringe IV PRN (20:56)
[2020-03-30] VITALS (18 sets, daily range): BP systolic 101–140; BP diastolic 56–74
[2020-03-30] MEDS ORDERED: cefepime 1GM/NS ADD-VANTAGE 100 ML IV SCH
[2020-03-30 05:18] LABS: BASOPHILS % (AUTO) 0.1 % (0-1); EOSINOPHILS % (AUTO) 0 % (0-6); HEMATOCRIT 32.7 % (35.0-45.0); HEMOGLOBIN 10.8 g/dl (12.0-16.0); LYMPHOCYTES # (AUTO) 0.5 X10'3 (1.1-4.8); LYMPHOCYTES % (AUTO) 5.8 % (21-51); MEAN CORPUSCULAR HEMOGLOBIN 29.1 PG (27.0-31.0); MEAN CORPUSCULAR HGB CONC 33.1 g/dL (33.0-36.5); MEAN CORPUSCULAR VOLUME 87.9 FL (78-98); MONOCYTES # (AUTO) 0.9 X10'3 (0-0.9); NEUTROPHILS # (AUTO) 7.7 X10'3 (1.8-7.7); NEUTROPHILS % (AUTO) 84.1 % (42-75); PLATELET COUNT 191 X10'3 (140-440); RED BLOOD COUNT 3.72 X10'6 (4.20-5.60); RED CELL DISTRIBUTION WIDTH 14.4 % (11.5-14.5); WHITE BLOOD COUNT 9.2 X10'3 (4.5-11.0)
[2020-03-30 05:20] LABS: ALANINE AMINOTRANSFERASE 25 U/L (12-78); ALBUMIN/GLOBULIN RATIO 0.6 (1.1-1.5); ALKALINE PHOSPHATASE 93 IU/L (46-116); ANION GAP 8 (8-16); ASPARTATE AMINO TRANSFERASE 14 U/L (10-37); BILIRUBIN,TOTAL 0.4 MG/DL (0.1-1.0); BLOOD UREA NITROGEN 16 MG/DL (7-18); BUN/CREATININE RATIO 12.4 (6.6-38.0); CALCIUM 8.6 MG/DL (8.5-10.1); CHLORIDE 100 MMOL/L (99-107); CREATININE 1.29 MG/DL (0.40-0.90); GLUCOSE 137 MG/DL (70-104); MAGNESIUM 1.8 MG/DL (1.5-2.4); POTASSIUM 4.2 MMOL/L (3.5-5.1); SODIUM 135 MMOL/L (135-145); TOTAL CARBON DIOXIDE 26.6 MMOL/L (24-32); eGFR 43 ML/MIN
[2020-03-30] MEDS: acetaminophen 325mg tablet PO PRN ×2 (05:22→23:50)
--- NOTE | 2020-03-30 06:35 | NUR ---
Problems reprioritized. Patient report given, questions answered & plan of care reviewed with Lucy Kohli RN.
--- NOTE | 2020-03-30 06:49 | NUR ---
Patient in room [facility] 360B. I have received report from BROOKE ANTONIO and had the opportunity to ask questions and assume patient care.
[2020-03-30] MEDS: sucralfate 1 gm tablet PO SCH ×4 (07:00→23:01)
[2020-03-30] MEDS: heparin, porcine 5000 units/ml vial SQ SCH ×4 (08:00→23:49)
[2020-03-30] MEDS: pantoprazole 40mg Tablet.DR PO SCH ×2 (08:00→19:43)
[2020-03-30] MEDS: simethicone 80mg chew tab PO SCH ×4 (08:00→23:01)
[2020-03-30] MEDS: K and/or MAG REPLACEMENT MC SCH ×2 (08:00→19:42)
[2020-03-30] MEDS: cefepime inj. 1 GM in normal saline 100ml IV soln 100 ML IV SCH ×3 (08:21→23:49)
[2020-03-30] MEDS: carBAMazepine 100mg chewable tablet PO SCH (08:30)
[2020-03-30 08:46] LABS: PARTIAL THROMBOPLASTIN TIME 39 SECONDS (22-32)
--- NOTE | 2020-03-30 10:46 | NUR ---
Problems reprioritized. Patient report given, questions answered & plan of care reviewed with BROOKE RIVERA FROM OR.
[2020-03-30] MEDS ORDERED: iohexol 300 MG/1 ML 50ml polymer ONE (10:54)
[2020-03-30] MEDS ORDERED: acetaminophen 1,000mg/100ml IV 100 ML IV ONE (12:10)
[2020-03-30] MEDS ORDERED: sevoflurane 250ml liquid IH ONE (12:32)
[2020-03-30] MEDS ORDERED: fentaNYL/PF 50MCG/1 ML 2ML syringe ONE (12:34)
[2020-03-30] MEDS ORDERED: midazolam 2 mg/2 ml injection ONE (12:38)
[2020-03-30] MEDS ORDERED: succinylcholine 20mg/ml inj IV ONE (12:59)
[2020-03-30] MEDS ORDERED: propofol inj 20 ML IV ONE (12:59)
[2020-03-30] MEDS ORDERED: ondansetron/PF 4mg/2ml inj ONE (12:59)
[2020-03-30] MEDS ORDERED: dexamethasone sod phosphate 4mg/ml inj. ONE (12:59)
[2020-03-30] MEDS ORDERED: LIDOcaine 2% (20mg/ml) 5ml vial ONE (12:59)
--- NOTE | 2020-03-30 13:12 | NUR ---
Received from OR via SURGICAL BED , accompanied by Anesthesiologist DR GAN and report given by Anesthesiolgist. PT ASLEEP. F/C TO GRAVITY W/ CLOUDY YELLOW DRAINAGE. SCD'S ON.
--- NOTE | 2020-03-30 13:33 | NUR ---
Patient in room [facility] 360B. I have received report from BROOKE ISLAS FROM RECOVERY and had the opportunity to ask questions and assume patient care.
[2020-03-30] MEDS ORDERED: meperidine/PF 25mg/ml syringe ONE (13:45)
--- NOTE | 2020-03-30 13:54 | NUR ---
RATES PAIN 2/10 AFTER PAIN MEDICATION. REPORT GIVEN TO MICHELA COX ON SURGICAL FLOOR. F/C CONTINUES TO DRAIN CLOUDY URINE, STAT LOCK APPLIED TO LEFT UPPER THIGH.
--- NOTE | 2020-03-30 14:02 | NUR ---
PT TO SURGICAL 360 B, NO BELONGINGS W/ PT. PT ALERT AND ORIENTED, DENIES NAUSEA AND STATES THE "MEDICINE WORKED" AND THAT HER PAIN IS NOW A 2 AND TOLERABLE. PT ORIENTED TO ROOM AND CALL LIGHT. BED LOW, RAILS UP X 2, BED LOCKED AND CALL LIGHT IN REACH. PT SET UP ON POST OP VITALS PER PROTOCOL AND NURSE MICHELA IN AT BEDSIDE UPON XFER TO ROOM. PT DENIES ANY FURTHER NEEDS AT THIS TIME AND WAS THANKFUL FOR HER CARE.
--- NOTE | 2020-03-30 18:45 | NUR ---
Problems reprioritized. Patient report given, questions answered & plan of care reviewed with JERRELL RN.
--- NOTE | 2020-03-30 19:30 | NUR ---
pt appropriate in using call light; aware not to get out of bed without assist Addendum: 03/31/20 at 0324 by Miladis Sabillon RN Amended: Links added.
--- NOTE | 2020-03-30 19:30 | NUR ---
pt obese; pt denies edema Addendum: 03/31/20 at 0324 by Miladis Sabillon RN Amended: Links added.
--- NOTE | 2020-03-30 19:30 | NUR ---
has scant spot of blood/ mucous in dejesus cath tubing Addendum: 03/31/20 at 0324 by Miladis Sabillon RN Amended: Links added.
[2020-03-30] MEDS: lactobacillus rhamnosus 10,000 MMU CELLS/CAPSULE PO SCH (19:42)
[2020-03-30] MEDS: tamsulosin 0.4mg capsule PO SCH (23:02)
[2020-03-30] MEDS: OLANZAPINE 5 MG TABLET PO SCH (23:02)
[2020-03-31 00:03] VITALS: BP 137/83
[2020-03-31 04:30] VITALS: BP 117/73
--- NOTE | 2020-03-31 06:00 | NUR ---
Patient in room [facility]. I have received report from Pat RN and had the opportunity to ask questions and assume patient care.
[2020-03-31 06:12] LABS: BASOPHILS % (AUTO) 0.3 % (0-1); EOSINOPHILS % (AUTO) 0.2 % (0-6); HEMOGLOBIN 10.5 g/dl (12.0-16.0); LYMPHOCYTES # (AUTO) 0.7 X10'3 (1.1-4.8); LYMPHOCYTES % (AUTO) 8.3 % (21-51); MEAN CORPUSCULAR HGB CONC 32.7 g/dL (33.0-36.5); MEAN CORPUSCULAR VOLUME 88.8 FL (78-98); MEAN PLATELET VOLUME 9.3 FL (7.4-10.4); MONOCYTES # (AUTO) 0.8 X10'3 (0-0.9); MONOCYTES % (AUTO) 9.9 % (2-12); NEUTROPHILS # (AUTO) 6.8 X10'3 (1.8-7.7); NEUTROPHILS % (AUTO) 81.3 % (42-75); PLATELET COUNT 176 X10'3 (140-440); RED CELL DISTRIBUTION WIDTH 14.4 % (11.5-14.5); WHITE BLOOD COUNT 8.4 X10'3 (4.5-11.0)
[2020-03-31 06:33] LABS: ALANINE AMINOTRANSFERASE 24 U/L (12-78); ALBUMIN 2.6 G/DL (3.4-5.0); ALBUMIN/GLOBULIN RATIO 0.5 (1.1-1.5); ALKALINE PHOSPHATASE 78 IU/L (46-116); ANION GAP 7 (8-16); ASPARTATE AMINO TRANSFERASE 17 U/L (10-37); BILIRUBIN,TOTAL 0.3 MG/DL (0.1-1.0); BLOOD UREA NITROGEN 14 MG/DL (7-18); BUN/CREATININE RATIO 13.2 (6.6-38.0); CALCIUM 8.5 MG/DL (8.5-10.1); CHLORIDE 103 MMOL/L (99-107); CREATININE 1.06 MG/DL (0.40-0.90); GLUCOSE 128 MG/DL (70-104); MAGNESIUM 1.9 MG/DL (1.5-2.4); POTASSIUM 3.9 MMOL/L (3.5-5.1); SODIUM 138 MMOL/L (135-145); TOTAL CARBON DIOXIDE 27.7 MMOL/L (24-32); TOTAL PROTEIN 7.7 G/DL (6.4-8.2); eGFR 54 ML/MIN
[2020-03-31 07:00] VITALS: BP 105/63
[2020-03-31] MEDS: K and/or MAG REPLACEMENT MC SCH ×2 (08:00→20:00)
[2020-03-31] MEDS: sucralfate 1 gm tablet PO SCH ×4 (09:01→20:36)
[2020-03-31] MEDS: cefepime inj. 1 GM in normal saline 100ml IV soln 100 ML IV SCH ×3 (09:02→23:45)
[2020-03-31] MEDS: simethicone 80mg chew tab PO SCH ×4 (09:02→20:36)
[2020-03-31] MEDS: lactobacillus rhamnosus 10,000 MMU CELLS/CAPSULE PO SCH ×2 (09:02→20:36)
[2020-03-31] MEDS: carBAMazepine 100mg chewable tablet PO SCH (09:02)
[2020-03-31] MEDS: pantoprazole 40mg Tablet.DR PO SCH ×2 (09:02→20:36)
[2020-03-31] MEDS: heparin, porcine 5000 units/ml vial SQ SCH ×3 (09:03→23:42)
[2020-03-31] MEDS: phenazopyridine 100mg tablet PO PRN (11:22)
[2020-03-31 11:59] VITALS: BP 138/81
--- NOTE | 2020-03-31 18:00 | NUR ---
Patient in room [facility]. I have received report from La COX and had the opportunity to ask questions and assume patient care.
--- NOTE | 2020-03-31 18:00 | NUR ---
Patient in room [facility]. I have received report from La COX and had the opportunity to ask questions and assume patient care.
--- NOTE | 2020-03-31 18:16 | NUR ---
Problems reprioritized. Patient report given, questions answered & plan of care reviewed with Jennifer COX.
[2020-03-31 20:00] VITALS: BP 148/89
[2020-03-31] MEDS: tamsulosin 0.4mg capsule PO SCH (20:36)
[2020-03-31] MEDS: OLANZAPINE 5 MG TABLET PO SCH (20:37)
[2020-04-01] VITALS: BP 134/68
[2020-04-01] MEDS: morphine 2 MG/ML inj. syringe IV PRN (04:46)
[2020-04-01] MEDS: phenazopyridine 100mg tablet PO PRN (05:36)
[2020-04-01 05:37] LABS: BASOPHILS % (AUTO) 0.3 % (0-1); EOSINOPHILS % (AUTO) 0 % (0-6); HEMATOCRIT 32.5 % (35.0-45.0); HEMOGLOBIN 10.7 g/dl (12.0-16.0); LYMPHOCYTES # (AUTO) 0.7 X10'3 (1.1-4.8); LYMPHOCYTES % (AUTO) 9.3 % (21-51); MEAN CORPUSCULAR VOLUME 87.9 FL (78-98); MEAN PLATELET VOLUME 8.9 FL (7.4-10.4); MONOCYTES # (AUTO) 0.9 X10'3 (0-0.9); MONOCYTES % (AUTO) 12.2 % (2-12); NEUTROPHILS # (AUTO) 5.5 X10'3 (1.8-7.7); NEUTROPHILS % (AUTO) 78.2 % (42-75); PLATELET COUNT 196 X10'3 (140-440); RED BLOOD COUNT 3.69 X10'6 (4.20-5.60); RED CELL DISTRIBUTION WIDTH 14.4 % (11.5-14.5); WHITE BLOOD COUNT 7.1 X10'3 (4.5-11.0)
[2020-04-01 06:07] LABS: ALANINE AMINOTRANSFERASE 21 U/L (12-78); ALBUMIN 2.7 G/DL (3.4-5.0); ALBUMIN/GLOBULIN RATIO 0.5 (1.1-1.5); ALKALINE PHOSPHATASE 84 IU/L (46-116); ANION GAP 10 (8-16); ASPARTATE AMINO TRANSFERASE 20 U/L (10-37); BILIRUBIN,TOTAL 0.5 MG/DL (0.1-1.0); BLOOD UREA NITROGEN 12 MG/DL (7-18); BUN/CREATININE RATIO 12.4 (6.6-38.0); CALCIUM 9.4 MG/DL (8.5-10.1); CHLORIDE 103 MMOL/L (99-107); CREATININE 0.97 MG/DL (0.40-0.90); GLUCOSE 131 MG/DL (70-104); MAGNESIUM 1.9 MG/DL (1.5-2.4); POTASSIUM 3.6 MMOL/L (3.5-5.1); SODIUM 138 MMOL/L (135-145); TOTAL CARBON DIOXIDE 24.9 MMOL/L (24-32); TOTAL PROTEIN 8.3 G/DL (6.4-8.2); eGFR 60 ML/MIN
--- NOTE | 2020-04-01 06:46 | NUR ---
Problems reprioritized. Patient report given, questions answered & plan of care reviewed with Liv COX.
--- NOTE | 2020-04-01 06:50 | NUR ---
Problems reprioritized. Patient report given, questions answered & plan of care reviewed with
[2020-04-01 08:00] VITALS: BP 130/66
[2020-04-01] MEDS: K and/or MAG REPLACEMENT MC SCH ×2 (08:00→20:00)
[2020-04-01] MEDS: lactobacillus rhamnosus 10,000 MMU CELLS/CAPSULE PO SCH ×2 (08:14→20:32)
[2020-04-01] MEDS: sucralfate 1 gm tablet PO SCH ×4 (08:14→20:33)
[2020-04-01] MEDS: simethicone 80mg chew tab PO SCH ×4 (08:15→20:32)
[2020-04-01] MEDS: pantoprazole 40mg Tablet.DR PO SCH ×2 (08:15→20:32)
[2020-04-01] MEDS: carBAMazepine 100mg chewable tablet PO SCH (08:16)
[2020-04-01] MEDS: heparin, porcine 5000 units/ml vial SQ SCH ×2 (08:17→16:00)
[2020-04-01] MEDS: cefepime inj. 1 GM in normal saline 100ml IV soln 100 ML IV SCH ×2 (08:19→16:20)
[2020-04-01 11:00] VITALS: BP 116/71
--- NOTE | 2020-04-01 11:13 | NUR ---
Student documentation: I have reviewed and agree with all interventions, assessments performed and documented by Maryuri, nursing assoc.
--- NOTE | 2020-04-01 11:14 | NUR ---
Student Medication Administration: For this medication-pass time frame, all medication were reviewed, dispensed, administered and documented per hospital policy by franc Wahl.
--- NOTE | 2020-04-01 12:05 | NUR ---
Problems reprioritized. Patient report given, questions answered & plan of care reviewed with
--- NOTE | 2020-04-01 15:27 | NUR ---
PAGER ID: [phone] MESSAGE: Liv-Surg [id number] Re: 360 B Mendoza patient has only voided 150ml today and bladder scan shows 0
--- NOTE | 2020-04-01 16:42 | NUR ---
PAGER ID: [phone] MESSAGE: Liv Surg [phone] Re: 360B Reji Bladder scan 51ml's in bladder total 150mls output today please call
--- NOTE | 2020-04-01 17:08 | NUR ---
PAGER ID: [phone] MESSAGE: Liv Surg [phone] Re: 360S Reji has had a little bleeding today can I hold heparin SQ Addendum: 04/01/20 at 1711 by Liv Aviles RN Per Dr Cristine cervantes to place hold on Heparin SQ
[2020-04-01] MEDS: normal saline 1000ml 1,000 ML IV SCH ×2 (17:46→21:45)
--- NOTE | 2020-04-01 18:12 | NUR ---
Problems reprioritized. Patient report given, questions answered & plan of care reviewed with Hugh COX.
[2020-04-01 19:33] VITALS: BP 139/79
[2020-04-01] MEDS: tamsulosin 0.4mg capsule PO SCH (20:32)
[2020-04-01] MEDS: OLANZAPINE 5 MG TABLET PO SCH (20:32)
[2020-04-02] MEDS: cefepime inj. 1 GM in normal saline 100ml IV soln 100 ML IV SCH ×3 (00:16→15:15)
[2020-04-02] MEDS: normal saline 1000ml 1,000 ML IV SCH ×5 (03:10→22:45)
--- NOTE | 2020-04-02 06:00 | NUR ---
Patient in room [facility]. I have received report from BROOKE Reese and had the opportunity to ask questions and assume patient care.
[2020-04-02 06:41] LABS: ALANINE AMINOTRANSFERASE 24 U/L (12-78); ALBUMIN 2.6 G/DL (3.4-5.0); ALBUMIN/GLOBULIN RATIO 0.5 (1.1-1.5); ALKALINE PHOSPHATASE 82 IU/L (46-116); ANION GAP 7 (8-16); ASPARTATE AMINO TRANSFERASE 16 U/L (10-37); BASOPHILS % (AUTO) 0.6 % (0-1); BILIRUBIN,TOTAL 0.4 MG/DL (0.1-1.0); BLOOD UREA NITROGEN 14 MG/DL (7-18); BUN/CREATININE RATIO 17.7 (6.6-38.0); CALCIUM 8.9 MG/DL (8.5-10.1); CHLORIDE 103 MMOL/L (99-107); CREATININE 0.79 MG/DL (0.40-0.90); EOSINOPHILS % (AUTO) 0 % (0-6); GLUCOSE 107 MG/DL (70-104); HEMOGLOBIN 10.1 g/dl (12.0-16.0); LYMPHOCYTES # (AUTO) 0.6 X10'3 (1.1-4.8); LYMPHOCYTES % (AUTO) 14.5 % (21-51); MEAN CORPUSCULAR HEMOGLOBIN 29.5 PG (27.0-31.0); MEAN CORPUSCULAR HGB CONC 33.6 g/dL (33.0-36.5); MEAN CORPUSCULAR VOLUME 87.8 FL (78-98); MONOCYTES # (AUTO) 0.6 X10'3 (0-0.9); NEUTROPHILS # (AUTO) 3.2 X10'3 (1.8-7.7); NEUTROPHILS % (AUTO) 71.9 % (42-75); PLATELET COUNT 205 X10'3 (140-440); POTASSIUM 3.4 MMOL/L (3.5-5.1); RED BLOOD COUNT 3.41 X10'6 (4.20-5.60); RED CELL DISTRIBUTION WIDTH 14.8 % (11.5-14.5); SODIUM 136 MMOL/L (135-145); TOTAL CARBON DIOXIDE 26.2 MMOL/L (24-32); TOTAL PROTEIN 8.2 G/DL (6.4-8.2); WHITE BLOOD COUNT 4.4 X10'3 (4.5-11.0); eGFR 76 ML/MIN
[2020-04-02 07:00] VITALS: BP 142/78
[2020-04-02] MEDS: sucralfate 1 gm tablet PO SCH ×4 (08:15→21:00)
[2020-04-02] MEDS: simethicone 80mg chew tab PO SCH ×4 (08:15→21:00)
[2020-04-02] MEDS: lactobacillus rhamnosus 10,000 MMU CELLS/CAPSULE PO SCH ×2 (08:15→20:00)
[2020-04-02] MEDS: pantoprazole 40mg Tablet.DR PO SCH ×2 (08:16→20:00)
[2020-04-02] MEDS: carBAMazepine 100mg chewable tablet PO SCH (08:17)
[2020-04-02] MEDS: K and/or MAG REPLACEMENT MC SCH ×2 (08:58→20:00)
--- NOTE | 2020-04-02 11:00 | NUR ---
Patient stated she would like to leave AMA. Patient informed that both her MD's feel it would be best to stay an additional day to make sure she has no active infections and to leave at this moment would be ill advised. MD informed and spoke with patient.
[2020-04-02 12:21] VITALS: BP 149/86
[2020-04-02] MEDS ORDERED: magnesium 4gm in 100ml NS 100 ML IV PRN (14:55)
[2020-04-02] MEDS ORDERED: magnesium Cl slow-release 64mg tablet PO PRN (14:55)
[2020-04-02] MEDS ORDERED: potassium Cl 20 mEq SR tablet PO PRN ×2 (14:55)
[2020-04-02] MEDS ORDERED: potassium CL 10mEq/100ml bag 100 ML IV PRN (14:55)
[2020-04-02 18:00] VITALS: BP 106/67
--- NOTE | 2020-04-02 18:30 | NUR ---
Problems reprioritized. Patient report given, questions answered & plan of care reviewed with BROOKE Reese.
--- NOTE | 2020-04-02 18:35 | NUR ---
Patient refused IV fluids for several hours when patient was considering leaving AMA until convinced by to do otherwise.
[2020-04-02] MEDS: tamsulosin 0.4mg capsule PO SCH (21:10)
[2020-04-02] MEDS: OLANZAPINE 5 MG TABLET PO SCH (21:10)
[2020-04-03] VITALS: BP 148/64
[2020-04-03] MEDS: cefepime inj. 1 GM in normal saline 100ml IV soln 100 ML IV SCH ×2 (00:32→08:00)
[2020-04-03] MEDS: normal saline 1000ml 1,000 ML IV SCH ×2 (00:32→08:45)
[2020-04-03 07:00] VITALS: BP 113/66
[2020-04-03 07:48] LABS: BASOPHILS % (AUTO) 0.3 % (0-1); EOSINOPHILS % (AUTO) 0 % (0-6); HEMATOCRIT 31.4 % (35.0-45.0); HEMOGLOBIN 10.5 g/dl (12.0-16.0); LYMPHOCYTES # (AUTO) 0.7 X10'3 (1.1-4.8); LYMPHOCYTES % (AUTO) 13.4 % (21-51); MEAN CORPUSCULAR HEMOGLOBIN 29.2 PG (27.0-31.0); MEAN CORPUSCULAR HGB CONC 33.4 g/dL (33.0-36.5); MEAN CORPUSCULAR VOLUME 87.4 FL (78-98); MEAN PLATELET VOLUME 8.7 FL (7.4-10.4); MONOCYTES # (AUTO) 0.5 X10'3 (0-0.9); MONOCYTES % (AUTO) 10.2 % (2-12); NEUTROPHILS # (AUTO) 4.1 X10'3 (1.8-7.7); NEUTROPHILS % (AUTO) 76.1 % (42-75); PLATELET COUNT 244 X10'3 (140-440); RED CELL DISTRIBUTION WIDTH 14.6 % (11.5-14.5); WHITE BLOOD COUNT 5.3 X10'3 (4.5-11.0)
[2020-04-03] MEDS: sucralfate 1 gm tablet PO SCH (07:50)
[2020-04-03] MEDS: simethicone 80mg chew tab PO SCH (07:51)
[2020-04-03] MEDS: lactobacillus rhamnosus 10,000 MMU CELLS/CAPSULE PO SCH (07:52)
[2020-04-03] MEDS: pantoprazole 40mg Tablet.DR PO SCH (07:52)
[2020-04-03] MEDS: carBAMazepine 100mg chewable tablet PO SCH (07:58)
[2020-04-03] MEDS: K and/or MAG REPLACEMENT MC SCH (08:00)
--- NOTE | 2020-04-03 10:00 | NUR ---
Wound care presented at bedside to help assist with ostomy complication. There was some leaking noted under device and it was removed. Cleansed with NS and dried. There is some psudoverricous lesions noted along the distal edge but no other skin concerns. Applied barrier product, Edgardo ring and placed bag. Good seal obtained.
[2020-04-03 10:01] LABS: ALANINE AMINOTRANSFERASE 26 U/L (12-78); ALBUMIN 2.7 G/DL (3.4-5.0); ALBUMIN/GLOBULIN RATIO 0.5 (1.1-1.5); ALKALINE PHOSPHATASE 91 IU/L (46-116); ANION GAP 9 (8-16); ASPARTATE AMINO TRANSFERASE 18 U/L (10-37); BILIRUBIN,TOTAL 0.2 MG/DL (0.1-1.0); BLOOD UREA NITROGEN 16 MG/DL (7-18); CHLORIDE 106 MMOL/L (99-107); GLUCOSE 120 MG/DL (70-104); MAGNESIUM 1.9 MG/DL (1.5-2.4); POTASSIUM 3.6 MMOL/L (3.5-5.1); SODIUM 138 MMOL/L (135-145); TOTAL CARBON DIOXIDE 23.1 MMOL/L (24-32); TOTAL PROTEIN 8.4 G/DL (6.4-8.2); eGFR 75 ML/MIN
[2020-04-03] MEDS ORDERED: FLUC200T38 PO (10:19)
[2020-04-03] MEDS ORDERED: LEVO500T89 PO (10:50)
--- NOTE | 2020-04-03 12:15 | NUR ---
PATIENT DISCHARGE EDUCATION DONE WITH PATIENT IN ROOM, NEW MEDICATIONS WERE GONE THROUGH AT DISCHARGE AND PATIENT EXPRESSED VERBAL UNDERSTANDING OF TEACHING. PATIENT WAS EDUCATED ON FOLLOW UP AND GIVEN NUMBER TO MAKE APPOINTMENT. PATIENT LEFT WITH ALL BELONGINGS AT DISCHARGE. PATIENT IV TAKEN OUT AT DISCHARGE CANULA WHOLE AND INTACT UPON DISCHARGE. PATIENT GIVEN TWO HARD COPY RX FROM UROLOGIST. PATIENT WAS TAKEN TO LOBBY IN WHEEL CHAIR AND LEFT WITH [facility]. JU
== END 2020-04-03 12:16 | disposition home or self-care (01) | DRG 720 ==
LOC: ER 13:49 → ED HOLD 16:59 → EDBEDREQ 17:57 → SUR 3N 18:14
PROVIDERS: ADMIT Family Medicine; ATTEND Family Medicine
PROC: BT1F1ZZ Fluoroscopy of Left Kidney, Ureter and Bladder using Low Osmolar Contrast (ICD-10-PCS; 2020-03-30)
PROC: 0T778DZ Dilation of Left Ureter with Intraluminal Device, Via Natural or Artificial Opening Endoscopic (ICD-10-PCS; principal; 2020-03-30 12:32)
DX: A41.9 Sepsis, unspecified organism (principal); E03.8 Other specified hypothyroidism; K21.9 Gastro-esophageal reflux disease without esophagitis; F41.9 Anxiety disorder, unspecified; F32.9 Major depressive disorder, single episode, unspecified; G40.802 Other epilepsy, not intractable, without status epilepticus; I10 Essential (primary) hypertension; N13.8 Other obstructive and reflux uropathy; D64.9 Anemia, unspecified; N13.2 Hydronephrosis with renal and ureteral calculous obstruction; Z88.8 Allergy status to other drugs, medicaments and biological substances; Z88.0 Allergy status to penicillin; Z88.2 Allergy status to sulfonamides; Z20.828 Contact with and (suspected) exposure to other viral communicable diseases
CPT/HCPCS: 36415; 71045; 74176; 76000; 80053; 81001; 82948; 83605; 83690; 83735; 84145; 85025; 85610; 85730; 87040; 87077; 87081; 87088; 87635; 93005; 96365; 96375; 97110; 97116; 97162; 97530; 99285; A4338; A4618; A5200; C1758; C1769; C2617; G0378; J0131; J0330; J0692; J1100; J1644; J1885; J1956; J2001; J2175; J2250; J2270; J2405; J2704; J3010; J7030; Q9967

== ENCOUNTER 2020-11-26 10:14 | Day surgery (SDC) | payer MEDICAID ==
[2020-11-21 16:46] LABS: ALBUMIN 3.5 G/DL (3.4-5.0); ALBUMIN/GLOBULIN RATIO 0.7 (1.1-1.5); ALKALINE PHOSPHATASE 173 IU/L (46-116); BLOOD UREA NITROGEN 12 MG/DL (7-18); BUN/CREATININE RATIO 12.8 (6.6-38.0); CALCIUM 9.4 MG/DL (8.5-10.1); CHLORIDE 103 MMOL/L (99-107); CREATININE 0.94 MG/DL (0.40-0.90); PRE OP ALT 30 U/L (30-65); PRE OP ANION GAP 8 (8-16); PRE OP AST 25 U/L (10-37); PRE OP BILIRUB, TOTAL 0.2 MG/DL (0.0-1.0); PRE OP GLUCOSE 132 MG/DL (70-104); PRE OP POTASSIUM 4.2 MMOL/L (3.4-5.1); PRE OP SODIUM 139 MMOL/L (135-145); TOTAL CARBON DIOXIDE 27.8 MMOL/L (24-32); TOTAL PROTEIN 8.6 G/DL (6.4-8.2); eGFR 62 ML/MIN
[2020-11-26] VITALS (16 sets, daily range): BP systolic 122–151; BP diastolic 52–93
[~2020-11-26] VITALS: Ht 172.7 cm; Wt 142.6 kg
[2020-11-26] MEDS: famotidine 20mg tablet PO ONE ×2 (05:30→11:32)
[~2020-11-26 10:14] MED LIST changes: +ALBU18HF2 INH; +APIX5TAB3 PO; +BENZ-16 PO; +CHOL100046 PO; +CYAN100082 PO; +EPIN0.3A3 IM; +FAMO40TA7 PO; +FERR325T28 PO; +FURO-150 PO; +LACT10SO3 PO; -LACT1CAP26 PO; -METR-159 PO; +MORP-92 PO; +MULT-1085 PO; +MYC15CR TOP; -MYL80T PO; +OXYC-658 PO; -PANT40TA54 PO; -PROM25TA14 PEG; +PROM25TA14 PO; +SIME80TA PO; +THIA50TA10 PO; +VITE1000C PO; +albuterol 2.5 MG/3 ML nebule NEB PRN; +clindamycin-Cleocin 900mg/D5W 50 ML IV ONE; +ringers solution, lacted 1,000 ML IV SCH
[2020-11-26] MEDS ORDERED: LIDOcaine 1% (10mg/ml) 2ml vial ONE (11:28)
[2020-11-26 12:08] LABS: BASOPHILS % (AUTO) 0.6 % (0-1); EOSINOPHILS % (AUTO) 0 % (0-6); LYMPHOCYTES # (AUTO) 0.7 X10'3 (1.1-4.8); LYMPHOCYTES % (AUTO) 12.7 % (21-51); MEAN CORPUSCULAR HEMOGLOBIN 29.1 PG (27.0-31.0); MEAN CORPUSCULAR HGB CONC 32.8 g/dL (33.0-36.5); MEAN CORPUSCULAR VOLUME 88.6 FL (78-98); MEAN PLATELET VOLUME 8.5 FL (7.4-10.4); MONOCYTES # (AUTO) 0.5 X10'3 (0-0.9); MONOCYTES % (AUTO) 8.4 % (2-12); NEUTROPHILS # (AUTO) 4.4 X10'3 (1.8-7.7); NEUTROPHILS % (AUTO) 78.3 % (42-75); PRE OP HEMATOCRIT 35.8 % (35.0-45.0); PRE OP HEMOGLOBIN 11.8 g/dL (12.0-16.0); PRE OP PLATELET COUNT 200 X10'3 (140-440); RED BLOOD COUNT 4.04 X10'6 (4.20-5.60); RED CELL DISTRIBUTION WIDTH 14.6 % (11.5-14.5)
[2020-11-26 12:23] LABS: PARTIAL THROMBOPLASTIN TIME 23 SECONDS (22-32)
[2020-11-26] MEDS ORDERED: BUPIVAcaine/PF 2.5 mg/ml (0.25%) 30ml vial ONE (13:17)
[2020-11-26] MEDS ORDERED: LIDOcaine 1% 30ml preserv. free vial ONE (13:17)
[2020-11-26] MEDS ORDERED: sevoflurane 250ml liquid IH ONE (13:29)
[2020-11-26] MEDS ORDERED: fentaNYL /PF 50mcg/ml 5ml ampule ONE (13:34)
[2020-11-26] MEDS ORDERED: MIDAZolam 1 MG/ML 5ML VIAL ONE (13:34)
[2020-11-26] MEDS ORDERED: sugammadex 200mg/2ml injection IV ONE (13:52)
[2020-11-26] MEDS ORDERED: propofol inj 20 ML IV ONE (13:53)
[2020-11-26] MEDS ORDERED: LIDOcaine 2% (20mg/ml) 5ml vial ONE (13:54)
[2020-11-26] MEDS ORDERED: ondansetron/PF 4mg/2ml inj ONE (13:54)
[2020-11-26] MEDS ORDERED: dexamethasone sod phosphate 4mg/ml inj. ONE (13:54)
[2020-11-26] MEDS ORDERED: rocuronium 10mg/ml inj IV ONE (13:54)
--- NOTE | 2020-11-26 15:08 | NUR ---
Received from OR via , accompanied by Anesthesiologist DR LACKEY and report given by Anesthesiolgist. PT PRESENTS WITH 18G LEFT HAND. ISLAND DRESSING ON LEFT ABD. VSS. Addendum: 11/26/20 at 1517 by Madalyn Moreira RN, RN Amended: Links added.
[2020-11-26] MEDS ORDERED: naloxone 0.4 mg/ml inj IV PRN (16:20)
[2020-11-26] MEDS ORDERED: CADD PCA waste documentation MC PRN (16:20)
[2020-11-26] MEDS: HYDROmorph./NS 0.2 mg/ml CADD 100 ML IV SCH ×4 (16:37→23:00)
--- NOTE | 2020-11-26 16:48 | NUR ---
PATIENT HAS MET ALL CRITERIA FOR TRANSFER TO THE SURGICAL FLOOR. VSS. DRESSINGS INTACT. BED LOW, CALL LIGHT PRESENT AND 2 RAILS UP. BROOKE JUAN PRESENT TO ACCEPT CARE OF PATIENT AND REPORT HAS BEEN CALLED. ALL QUESTIONS ANSWERED TO ACCEPTING RN. Addendum: 11/26/20 at 1717 by Madalyn Mccann - BROOKE RN Amended: Links added.
--- NOTE | 2020-11-26 17:10 | NUR ---
Pt. orientated to room and call light. VSS at this time. Placed on 02. CADD assessed. Pt. refusing to have post-op vital signs taken stating "It hurts like shit." referring to BP cuff. Also states, "I hate those things on my legs. Take them off." Pt. educated on the importance of post op VS and SCDs yet still refusing them.
--- NOTE | 2020-11-26 18:24 | NUR ---
Problems reprioritized. Patient report given, questions answered & plan of care reviewed with Regino COX.
[2020-11-26] MEDS ORDERED: benzocaine/menthol oral lozeng 1 EACH BOX MM PRN (20:40)
[2020-11-27] MEDS: HYDROmorph./NS 0.2 mg/ml CADD 100 ML IV SCH ×4 (00:57→07:00)
--- NOTE | 2020-11-27 06:30 | NUR ---
Patient in room [facility] 356. I have received report from BROOKE Lacy and had the opportunity to ask questions and assume patient care.
--- NOTE | 2020-11-27 06:43 | NUR ---
Problems reprioritized. Patient report given, questions answered & plan of care reviewed with KARY. Addendum: 11/27/20 at 0644 by Angel Alvarez RN Amended: Links added.
[2020-11-27 07:00] VITALS: BP 139/81
== END 2020-11-27 10:50 | disposition home or self-care (01) ==
LOC: PAS 10:14 → SUR 3N 18:12 → PAS 11-27 10:50
PROVIDERS: ATTEND Surgery
DX: R19.09 Other intra-abdominal and pelvic swelling, mass and lump (principal); C77.2 Secondary and unspecified malignant neoplasm of intra-abdominal lymph nodes; Z79.899 Other long term (current) drug therapy; Z79.01 Long term (current) use of anticoagulants; Z98.890 Other specified postprocedural states; Z90.49 Acquired absence of other specified parts of digestive tract; Z98.51 Tubal ligation status; J44.9 Chronic obstructive pulmonary disease, unspecified; G47.30 Sleep apnea, unspecified; K21.9 Gastro-esophageal reflux disease without esophagitis; M19.90 Unspecified osteoarthritis, unspecified site; E66.01 Morbid (severe) obesity due to excess calories; Z68.42 Body mass index [BMI] 45.0-49.9, adult; Z86.14 Personal history of Methicillin resistant Staphylococcus aureus infection; Z88.2 Allergy status to sulfonamides; Z88.0 Allergy status to penicillin; Z88.8 Allergy status to other drugs, medicaments and biological substances; Z85.41 Personal history of malignant neoplasm of cervix uteri; Z91.030 Bee allergy status; Z91.09 Other allergy status, other than to drugs and biological substances; Z91.018 Allergy to other foods
CPT/HCPCS: 36415; 38531; 80053; 82948; 85025; 85610; 85730; C9399; J1100; J1170; J2001; J2250; J2405; J2704; J3010; J3490; J7120; A4215; A4618; A7000; G0378

== ENCOUNTER 2023-08-29 06:12 | Day surgery (SDC) | payer MEDICAID ==
[2023-08-26 15:23] LABS: BASOPHILS % (AUTO) 0.2 % (0-1); EOSINOPHILS % (AUTO) 0 % (0-6); LYMPHOCYTES # (AUTO) 0.6 X10'3 (1.1-4.8); LYMPHOCYTES % (AUTO) 20.4 % (21-51); MEAN CORPUSCULAR HGB CONC 33.4 g/dL (33.0-36.5); MEAN PLATELET VOLUME 8.2 FL (7.4-10.4); MONOCYTES # (AUTO) 0.3 X10'3 (0-0.9); NEUTROPHILS # (AUTO) 2.1 X10'3 (1.8-7.7); NEUTROPHILS % (AUTO) 70.4 % (42-75); PRE OP HEMOGLOBIN 12.3 g/dL (12.0-16.0); PRE OP PLATELET COUNT 147 X10'3 (140-440); RED BLOOD COUNT 4.11 X10'6 (4.20-5.60); RED CELL DISTRIBUTION WIDTH 18.1 % (11.5-14.5)
[2023-08-26 15:35] LABS: ALBUMIN 3.3 G/DL (3.4-5.0); ALBUMIN/GLOBULIN RATIO 0.8 (1.1-1.5); ALKALINE PHOSPHATASE 115 IU/L (46-116); BLOOD UREA NITROGEN 15 MG/DL (7-18); CALCIUM 9.1 MG/DL (8.5-10.1); CHLORIDE 107 MMOL/L (99-107); CREATININE 0.79 MG/DL (0.40-0.90); PRE OP ALT 39 U/L (30-65); PRE OP ANION GAP 11 (8-16); PRE OP AST 35 U/L (10-37); PRE OP BILIRUB, TOTAL 0.3 MG/DL (0.0-1.0); PRE OP GLUCOSE 155 MG/DL (70-104); PRE OP POTASSIUM 4.1 MMOL/L (3.4-5.1); PRE OP SODIUM 142 MMOL/L (135-145); TOTAL CARBON DIOXIDE 24.1 MMOL/L (24-32); TOTAL PROTEIN 7.7 G/DL (6.4-8.2); eGFR 75 ML/MIN
[2023-08-26 15:49] LABS: TOTAL CELLS COUNTED 100
[2023-08-26 15:50] LABS: ANISOCYTOSIS 2+; ELLIPTOCYTES FEW; PLATELET ESTIMATE NORMAL
[2023-08-26 15:51] LABS: STOMATOCYTES FEW
[2023-08-29] VITALS (9 sets, daily range): BP systolic 119–131; BP diastolic 77–85; PULSE 58–67; RESP 13–16; TEMP 97.5; O2SAT 97–100
[~2023-08-29] VITALS: Ht 172.7 cm; Wt 106.7 kg
[2023-08-29] MEDS: clindamycin-Cleocin 900mg/D5W 50 ML IV ONE (05:30)
[~2023-08-29 06:12] MED LIST changes: -ALBU18HF2 INH; -BENZ-16 PO; -CHOL100046 PO; -CYAN100082 PO; +DULO30CA52 PO; -EPIN0.3A3 IM; -FAMO40TA7 PO; -FERR325T28 PO; -FURO-150 PO; +GABA300C; -LACT10SO3 PO; +LENV10CA PO; +LEVO50CA4 PO; -MONT10TA21 PO; -MORP-92 PO; -MULT-1085 PO; -MYC15CR TOP; -OLAN2.5T3 PO; -OXYC-658 PO; -PROM25TA14 PO; -SIME80TA PO; -TEG100T PO; -THIA50TA10 PO; -VITE1000C PO; -albuterol 2.5 MG/3 ML nebule NEB PRN; -clindamycin-Cleocin 900mg/D5W 50 ML IV ONE; -ringers solution, lacted 1,000 ML IV SCH
[2023-08-29] MEDS: famotidine 20mg tablet PO ONE (06:58)
[2023-08-29] MEDS: ringers solution, lacted 1,000 ML IV SCH (06:59)
[2023-08-29] MEDS ORDERED: ondansetron/PF 4mg/2ml inj IV PRN (07:50)
[2023-08-29] MEDS ORDERED: ringers solution, lacted 1,000 ML IV SCH (07:50)
[2023-08-29] MEDS ORDERED: labetalol 20mg/4ml (5mg/ml) syringe IV PRN (07:50)
[2023-08-29] MEDS ORDERED: morphine 4 MG/ML inj SYRINge IV PRN (07:50)
[2023-08-29] MEDS ORDERED: hydrALAZINE 20mg/ml inj. IV PRN (07:50)
[2023-08-29] MEDS ORDERED: morphine 2 MG/ML inj. syringe IV PRN (07:50)
[2023-08-29] MEDS ORDERED: LIDOcaine 0.5% (5mg/ml) 50ml vial ONE (07:51)
[2023-08-29] MEDS ORDERED: propofol inj 20 ML IV ONE (09:22)
[2023-08-29] MEDS ORDERED: midazolam 1 mg/ML 2ml injection ONE (09:22)
[2023-08-29] MEDS ORDERED: fentaNYL/PF 50MCG/1 ML 2ML syringe ONE (09:22)
[2023-08-29] MEDS: BUPIVAcaine/PF 2.5mg/ml (0.25%) 10ml vial ONE (09:45)
[2023-08-29] MEDS: LIDOcaine 2% (20mg/ml) 5ml vial ONE (09:46)
== END 2023-08-29 10:48 | disposition home or self-care (01) ==
LOC: PAS 06:12
PROVIDERS: ATTEND Orthopaedic Surgery Hand Surgery
DX: G56.01 Carpal tunnel syndrome, right upper limb (principal); M65.311 Trigger thumb, right thumb; I10 Essential (primary) hypertension; E66.9 Obesity, unspecified; J44.9 Chronic obstructive pulmonary disease, unspecified; G47.33 Obstructive sleep apnea (adult) (pediatric); G40.909 Epilepsy, unspecified, not intractable, without status epilepticus; K21.9 Gastro-esophageal reflux disease without esophagitis; F41.9 Anxiety disorder, unspecified; M19.90 Unspecified osteoarthritis, unspecified site; Z87.442 Personal history of urinary calculi; Z85.42 Personal history of malignant neoplasm of other parts of uterus; Z79.890 Hormone replacement therapy; Z79.891 Long term (current) use of opiate analgesic; Z79.899 Other long term (current) drug therapy; Z90.49 Acquired absence of other specified parts of digestive tract; Z98.51 Tubal ligation status; Z98.890 Other specified postprocedural states; Z68.41 Body mass index [BMI] 40.0-44.9, adult; Z88.0 Allergy status to penicillin; Z88.1 Allergy status to other antibiotic agents; Z88.2 Allergy status to sulfonamides; Z88.6 Allergy status to analgesic agent
CPT/HCPCS: 26055; 29848; 36415; 80053; 82948; 85025; 93005; J2250; J2704; J3010; J3490; J7030; J7120; Z7506; Z7512; 85007; A4215; A6449; A7000

== ENCOUNTER 2023-10-03 07:49 | Day surgery (SDC) | payer MEDICAID ==
[2023-09-28 14:13] LABS: BASOPHILS % (AUTO) 0.2 % (0-1); EOSINOPHILS % (AUTO) 0.1 % (0-6); LYMPHOCYTES # (AUTO) 0.5 X10'3 (1.1-4.8); LYMPHOCYTES % (AUTO) 18.2 % (21-51); MEAN CORPUSCULAR HEMOGLOBIN 30.2 PG (27.0-31.0); MEAN CORPUSCULAR HGB CONC 33.3 g/dL (33.0-36.5); MEAN CORPUSCULAR VOLUME 90.8 FL (78-98); MEAN PLATELET VOLUME 7.5 FL (7.4-10.4); MONOCYTES # (AUTO) 0.2 X10'3 (0-0.9); MONOCYTES % (AUTO) 6.8 % (2-12); NEUTROPHILS # (AUTO) 2.3 X10'3 (1.8-7.7); NEUTROPHILS % (AUTO) 74.7 % (42-75); PRE OP HEMATOCRIT 37.3 % (35.0-45.0); PRE OP HEMOGLOBIN 12.4 g/dL (12.0-16.0); PRE OP PLATELET COUNT 134 X10'3 (140-440); RED BLOOD COUNT 4.11 X10'6 (4.20-5.60); RED CELL DISTRIBUTION WIDTH 17.7 % (11.5-14.5)
[2023-09-28 14:41] LABS: ALBUMIN/GLOBULIN RATIO 0.6 (1.1-1.5); ALKALINE PHOSPHATASE 112 IU/L (46-116); BLOOD UREA NITROGEN 19 MG/DL (7-18); BUN/CREATININE RATIO 24.1 (10.0-20.0); CALCIUM 8.8 MG/DL (8.5-10.1); CHLORIDE 102 MMOL/L (99-107); CREATININE 0.79 MG/DL (0.40-0.90); PRE OP ALT 44 U/L (30-65); PRE OP ANION GAP 7 (8-16); PRE OP AST 35 U/L (10-37); PRE OP BILIRUB, TOTAL 0.3 MG/DL (0.0-1.0); PRE OP GLUCOSE 137 MG/DL (70-104); PRE OP SODIUM 137 MMOL/L (135-145); TOTAL CARBON DIOXIDE 28.1 MMOL/L (24-32); TOTAL PROTEIN 7.7 G/DL (6.4-8.2); eGFR 75 ML/MIN
[2023-09-28 14:50] LABS: TOTAL CELLS COUNTED 100
[2023-09-28 14:51] LABS: ANISOCYTOSIS 1+; PLATELET ESTIMATE DECREASED
[2023-10-03] VITALS (7 sets, daily range): BP systolic 124–145; BP diastolic 69–85; PULSE 67–76; RESP 12–16; TEMP 97.7; O2SAT 96–100
[~2023-10-03] VITALS: Ht 172.7 cm; Wt 108.0 kg
[2023-10-03] MEDS: clindamycin-Cleocin 900mg/D5W 50 ML IV ONE (05:30)
[~2023-10-03 07:49] MED LIST changes: +GABA100C PO; -GABA300C; +LEVO-65 PO; +PROMETHAZINE PO
[2023-10-03] MEDS ORDERED: morphine 2 MG/ML inj. syringe IV PRN (08:30)
[2023-10-03] MEDS ORDERED: labetalol 20mg/4ml (5mg/ml) syringe IV PRN (08:30)
[2023-10-03] MEDS ORDERED: ondansetron/PF 4mg/2ml inj IV PRN (08:30)
[2023-10-03] MEDS ORDERED: hydrALAZINE 20mg/ml inj. IV PRN (08:30)
[2023-10-03] MEDS ORDERED: morphine 4 MG/ML inj SYRINge IV PRN (08:30)
[2023-10-03] MEDS ORDERED: ringers solution, lacted 1,000 ML IV SCH (08:30)
[2023-10-03] MEDS: famotidine 20mg tablet PO ONE (09:39)
[2023-10-03] MEDS: ringers solution, lacted 1,000 ML IV SCH (09:40)
[2023-10-03] MEDS ORDERED: propofol 10mg/ml 20ml vial IV ONE (11:05)
[2023-10-03] MEDS: BUPIVAcaine/PF 2.5mg/ml (0.25%) 10ml vial ONE (11:23)
[2023-10-03] MEDS: LIDOcaine 2% (20mg/ml) 5ml vial ONE (11:24)
== END 2023-10-03 12:27 | disposition home or self-care (01) ==
LOC: PAS 07:49
PROVIDERS: ATTEND Orthopaedic Surgery Hand Surgery
DX: G56.02 Carpal tunnel syndrome, left upper limb (principal); M65.312 Trigger thumb, left thumb; M65.352 Trigger finger, left little finger; I10 Essential (primary) hypertension; E03.9 Hypothyroidism, unspecified; J44.9 Chronic obstructive pulmonary disease, unspecified; E66.9 Obesity, unspecified; G47.33 Obstructive sleep apnea (adult) (pediatric); F41.9 Anxiety disorder, unspecified; K21.9 Gastro-esophageal reflux disease without esophagitis; Z85.42 Personal history of malignant neoplasm of other parts of uterus; Z87.442 Personal history of urinary calculi; Z87.440 Personal history of urinary (tract) infections; Z79.01 Long term (current) use of anticoagulants; Z79.890 Hormone replacement therapy; Z79.899 Other long term (current) drug therapy; Z90.49 Acquired absence of other specified parts of digestive tract; Z98.51 Tubal ligation status; Z98.890 Other specified postprocedural states; Z68.36 Body mass index [BMI] 36.0-36.9, adult; Z88.0 Allergy status to penicillin; Z88.1 Allergy status to other antibiotic agents; Z88.2 Allergy status to sulfonamides; Z88.6 Allergy status to analgesic agent; Z88.8 Allergy status to other drugs, medicaments and biological substances
CPT/HCPCS: 26055; 29848; 80053; 82948; 85025; A6258; J2704; J3490; J7030; J7120; Z7506; Z7512; 85007; A4215; A6449; A7000

== ENCOUNTER 2023-10-14 09:11 | Emergency (ER) | payer MEDICAID ==
[~2023-10-14] VITALS: Ht 174 cm; Wt 106.7 kg
[2023-10-14 09:54] LABS: BASOPHILS % (AUTO) 0.4 % (0-1); EOSINOPHILS % (AUTO) 0.1 % (0-6); HEMATOCRIT 36.5 % (35.0-45.0); LYMPHOCYTES # (AUTO) 0.6 X10'3 (1.1-4.8); LYMPHOCYTES % (AUTO) 17.4 % (21-51); MEAN CORPUSCULAR HEMOGLOBIN 30.2 PG (27.0-31.0); MEAN CORPUSCULAR HGB CONC 32.8 g/dL (33.0-36.5); MEAN CORPUSCULAR VOLUME 92.1 FL (78-98); MEAN PLATELET VOLUME 7.4 FL (7.4-10.4); MONOCYTES # (AUTO) 0.3 X10'3 (0-0.9); MONOCYTES % (AUTO) 8.6 % (2-12); NEUTROPHILS # (AUTO) 2.4 X10'3 (1.8-7.7); NEUTROPHILS % (AUTO) 73.5 % (42-75); PLATELET COUNT 136 X10'3 (140-440); RED BLOOD COUNT 3.96 X10'6 (4.20-5.60); RED CELL DISTRIBUTION WIDTH 17.3 % (11.5-14.5); WHITE BLOOD COUNT 3.3 X10'3 (4.5-11.0)
[2023-10-14 09:57] LABS: BILIRUBIN,URINE NEGATIVE (Neg); CLARITY,URINE CLOUDY (Clear); COLOR,URINE YELLOW (Yellow); GLUCOSE, URINE NEGATIVE (Neg); KETONES,URINE NEGATIVE (Neg); LEUKOCYTE ESTERASE ,URINE MODERATE (Neg); NITRITES, URINE NEGATIVE (Neg); OCCULT BLOOD,URINE LARGE (Neg); PROTEIN,URINE TRACE mg/dl (Neg); UROBILINOGEN,URINE 0.2 E.U/dL (0.2-1.0)
[2023-10-14 10:03] LABS: MUCUS STRANDS FEW /LPF (Neg); SQUAMOUS EPITHELIAL CELL,UR MANY /LPF (FEW); UA COLLECTION TYPE CLN CATCH MIDSTREAM
[2023-10-14 10:05] LABS: RBC,URINE 20-50 /HPF (0-2); URINE HCG NEGATIVE (NEG)
[2023-10-14 10:06] LABS: WBC,URINE 50-100 /HPF (0-4)
[2023-10-14 10:07] LABS: AMORPHOUS URATES 1+; BACTERIA,URINE 2+ /HPF (Neg); YEAST FEW /HPF (NEGATIVE)
[2023-10-14 10:08] LABS: ALANINE AMINOTRANSFERASE 51 U/L (12-78); ALBUMIN 3.2 G/DL (3.4-5.0); ALBUMIN/GLOBULIN RATIO 0.7 (1.1-1.5); ALKALINE PHOSPHATASE 78 IU/L (46-116); ANION GAP 6 (8-16); ASPARTATE AMINO TRANSFERASE 48 U/L (10-37); BILIRUBIN,TOTAL 0.5 MG/DL (0.1-1.0); BLOOD UREA NITROGEN 21 MG/DL (7-18); BUN/CREATININE RATIO 22.8 (10.0-20.0); CALCIUM 9.3 MG/DL (8.5-10.1); CHLORIDE 101 MMOL/L (99-107); CREATININE 0.92 MG/DL (0.40-0.90); GLUCOSE 121 MG/DL (70-104); LIPASE 8 U/L (16-77); POTASSIUM 4.2 MMOL/L (3.5-5.1); SODIUM 134 MMOL/L (135-145); TOTAL CARBON DIOXIDE 26.7 MMOL/L (24-32); TOTAL PROTEIN 8.1 G/DL (6.4-8.2); eCRCL 68 ML/MIN; eGFR 63 ML/MIN
[2023-10-14] MEDS ORDERED: iohexol 300mg/ml 100ml inj. ONE (11:48)
[2023-10-14 13:15] VITALS: BP 146/75; PULSE 70; RESP 18; TEMP 97.9; O2SAT 90
== END 2023-10-14 13:20 | disposition home or self-care (01) ==
LOC: ER 09:12
DX: R10.11 Right upper quadrant pain (principal); J45.909 Unspecified asthma, uncomplicated; F41.9 Anxiety disorder, unspecified; F32.A Depression, unspecified; E03.9 Hypothyroidism, unspecified; Z98.890 Other specified postprocedural states; Z90.49 Acquired absence of other specified parts of digestive tract; Z87.442 Personal history of urinary calculi; Z56.0 Unemployment, unspecified
CPT/HCPCS: 36415; 74177; 80053; 81001; 81025; 83690; 85025; 99285; J3490; J7030; Q9967

== ENCOUNTER 2023-11-14 16:29 | Outpatient (CLI) | payer MEDICAID | END 2023-11-14 23:59 | disposition home or self-care (01) | LOC: RAD 16:29 | PROVIDERS: ATTEND Family Medicine | DX: M76.52 Patellar tendinitis, left knee (principal); M25.562 Pain in left knee | CPT/HCPCS: 73560 ==

== ENCOUNTER 2023-12-19 16:44 | Emergency (ER) | payer MEDICAID ==
[~2023-12-19] VITALS: Ht 172.7 cm; Wt 106.8 kg
[2023-12-19 18:07] LABS: BASOPHILS % (AUTO) 0.2 % (0-1); EOSINOPHILS % (AUTO) 0.1 % (0-6); HEMOGLOBIN 13.2 g/dl (12.0-16.0); LYMPHOCYTES # (AUTO) 0.6 X10'3 (1.1-4.8); LYMPHOCYTES % (AUTO) 13.9 % (21-51); MEAN CORPUSCULAR HEMOGLOBIN 30.7 PG (27.0-31.0); MEAN CORPUSCULAR HGB CONC 33.8 g/dL (33.0-36.5); MEAN PLATELET VOLUME 7.6 FL (7.4-10.4); MONOCYTES # (AUTO) 0.2 X10'3 (0-0.9); MONOCYTES % (AUTO) 5.4 % (2-12); NEUTROPHILS # (AUTO) 3.2 X10'3 (1.8-7.7); NEUTROPHILS % (AUTO) 80.4 % (42-75); PLATELET COUNT 194 X10'3 (140-440); RED BLOOD COUNT 4.29 X10'6 (4.20-5.60); RED CELL DISTRIBUTION WIDTH 16.9 % (11.5-14.5)
[2023-12-19 18:19] LABS: ALANINE AMINOTRANSFERASE 48 U/L (12-78); ALBUMIN 3.4 G/DL (3.4-5.0); ALBUMIN/GLOBULIN RATIO 0.7 (1.1-1.5); ALKALINE PHOSPHATASE 113 IU/L (46-116); AMYLASE 20 U/L (25-115); ANION GAP 11 (8-16); ASPARTATE AMINO TRANSFERASE 52 U/L (10-37); BILIRUBIN,TOTAL 0.7 MG/DL (0.1-1.0); BLOOD UREA NITROGEN 14 MG/DL (7-18); BUN/CREATININE RATIO 17.7 (10.0-20.0); CALCIUM 9.6 MG/DL (8.5-10.1); CHLORIDE 101 MMOL/L (99-107); CREATININE 0.79 MG/DL (0.40-0.90); GLUCOSE 119 MG/DL (70-104); LIPASE 9 U/L (16-77); POTASSIUM 4.1 MMOL/L (3.5-5.1); SODIUM 139 MMOL/L (135-145); TOTAL CARBON DIOXIDE 27.4 MMOL/L (24-32); TOTAL PROTEIN 8.6 G/DL (6.4-8.2); eCRCL 78 ML/MIN; eGFR 75 ML/MIN
[2023-12-19] MEDS: ketorolac tromethamine 15mg/ml inj. IM ONE (19:13)
[2023-12-19 19:17] VITALS: BP 130/84; PULSE 64; RESP 16; TEMP 98; O2SAT 99
== END 2023-12-19 19:19 | disposition home or self-care (01) ==
LOC: ER 16:45
DX: K29.00 Acute gastritis without bleeding (principal); J45.909 Unspecified asthma, uncomplicated; E03.9 Hypothyroidism, unspecified; F41.9 Anxiety disorder, unspecified; F32.A Depression, unspecified; Z90.49 Acquired absence of other specified parts of digestive tract; Z98.51 Tubal ligation status; Z98.890 Other specified postprocedural states; Z87.442 Personal history of urinary calculi; Z88.0 Allergy status to penicillin; Z88.8 Allergy status to other drugs, medicaments and biological substances; Z79.2 Long term (current) use of antibiotics; Z79.899 Other long term (current) drug therapy; Z56.0 Unemployment, unspecified
CPT/HCPCS: 36415; 80053; 82150; 83690; 85025; 96372; 99283; J1885

== ENCOUNTER 2024-01-31 13:29 | Outpatient (CLI) | payer MEDICAID | END 2024-01-31 23:59 | disposition home or self-care (01) | LOC: MRI 13:29 | PROVIDERS: ATTEND Family Medicine | DX: M71.22 Synovial cyst of popliteal space [Baker], left knee (principal); M25.362 Other instability, left knee; M25.462 Effusion, left knee | CPT/HCPCS: 73721 ==

== ENCOUNTER 2024-02-15 17:30 | Emergency (ER) | payer MEDICAID ==
[~2024-02-15] VITALS: Ht 172.7 cm; Wt 105.6 kg
[2024-02-15 18:59] VITALS: BP 132/80; PULSE 78; RESP 18; TEMP 97.8; O2SAT 99
== END 2024-02-15 19:25 | disposition home or self-care (01) ==
LOC: ER 17:31
DX: B34.9 Viral infection, unspecified (principal); Z20.822 Contact with and (suspected) exposure to COVID-19; J45.909 Unspecified asthma, uncomplicated; E03.9 Hypothyroidism, unspecified; F41.9 Anxiety disorder, unspecified; F32.A Depression, unspecified; Z88.2 Allergy status to sulfonamides; Z88.0 Allergy status to penicillin; Z88.6 Allergy status to analgesic agent; Z79.899 Other long term (current) drug therapy; Z79.2 Long term (current) use of antibiotics; Z90.49 Acquired absence of other specified parts of digestive tract; Z98.51 Tubal ligation status
CPT/HCPCS: 36415; 87811; 99283

== ENCOUNTER 2024-04-09 09:11 | Emergency (ER) | payer MEDICAID ==
[~2024-04-09] VITALS: Ht 175.3 cm; Wt 107.2 kg
[2024-04-09 09:17] VITALS: TEMP 97.6
[2024-04-09 10:41] LABS: BASOPHILS % (AUTO) 0.3 % (0-1); EOSINOPHILS # (AUTO) 0.1 X10'3 (0-0.9); EOSINOPHILS % (AUTO) 5.5 % (0-6); HEMATOCRIT 35.7 % (35.0-45.0); HEMOGLOBIN 11.6 g/dl (12.0-16.0); LYMPHOCYTES # (AUTO) 0.4 X10'3 (1.1-4.8); LYMPHOCYTES % (AUTO) 15.6 % (21-51); MEAN CORPUSCULAR HEMOGLOBIN 29.7 PG (27.0-31.0); MEAN CORPUSCULAR HGB CONC 32.6 g/dL (33.0-36.5); MEAN CORPUSCULAR VOLUME 91.2 FL (78-98); MEAN PLATELET VOLUME 7.4 FL (7.4-10.4); MONOCYTES # (AUTO) 0.1 X10'3 (0-0.9); MONOCYTES % (AUTO) 5.6 % (2-12); NEUTROPHILS # (AUTO) 1.8 X10'3 (1.8-7.7); PLATELET COUNT 133 X10'3 (140-440); RED BLOOD COUNT 3.91 X10'6 (4.20-5.60); RED CELL DISTRIBUTION WIDTH 17.9 % (11.5-14.5); WHITE BLOOD COUNT 2.5 X10'3 (4.5-11.0)
[2024-04-09 10:58] LABS: ALANINE AMINOTRANSFERASE 43 U/L (12-78); ALBUMIN 2.8 G/DL (3.4-5.0); ALBUMIN/GLOBULIN RATIO 0.7 (1.1-1.5); ALKALINE PHOSPHATASE 100 IU/L (46-116); ANION GAP 7 (8-16); ASPARTATE AMINO TRANSFERASE 37 U/L (10-37); BILIRUBIN,TOTAL 0.4 MG/DL (0.1-1.0); BLOOD UREA NITROGEN 17 MG/DL (7-18); BUN/CREATININE RATIO 22.4 (10.0-20.0); CALCIUM 8.8 MG/DL (8.5-10.1); CHLORIDE 110 MMOL/L (99-107); CREATININE 0.76 MG/DL (0.40-0.90); GLUCOSE 106 MG/DL (70-104); POTASSIUM 4.2 MMOL/L (3.5-5.1); SODIUM 140 MMOL/L (135-145); TOTAL CARBON DIOXIDE 22.8 MMOL/L (24-32); TOTAL PROTEIN 6.9 G/DL (6.4-8.2); eCRCL 84 ML/MIN; eGFR 78 ML/MIN
[2024-04-09 11:03] LABS: TOTAL CELLS COUNTED 100
[2024-04-09 11:04] LABS: ANISOCYTOSIS 1+; PLATELET ESTIMATE DECREASED
[2024-04-09 11:05] LABS: ELLIPTOCYTES FEW
[2024-04-09] MEDS: pantoprazole 40 MG vial IV STA (11:14)
[2024-04-09 11:56] LABS: CLARITY,URINE BLOODY (Clear); COLOR,URINE RED (Yellow); UA COLLECTION TYPE STRAIGHT CATH
[2024-04-09 12:00] LABS: SQUAMOUS EPITHELIAL CELL,UR FEW /LPF (FEW)
[2024-04-09 12:01] LABS: RBC,URINE TNTC /HPF (0-2)
[2024-04-09 12:02] LABS: BACTERIA,URINE NONE SEEN /HPF (Neg)
[2024-04-09] MEDS: normal saline 1000ml 1,000 ML IV ONE (12:10)
[2024-04-09] MEDS: pantoprazole 40mg Tablet.DR PO ONE (12:18)
[2024-04-09] MEDS ORDERED: NITR100C6 PO (15:31)
[2024-04-09 15:46] VITALS: BP 146/86; PULSE 86; RESP 16; O2SAT 98
== END 2024-04-09 15:50 | disposition home or self-care (01) ==
LOC: ER 09:12
DX: C55 Malignant neoplasm of uterus, part unspecified (principal); N39.0 Urinary tract infection, site not specified; R31.9 Hematuria, unspecified; N93.8 Other specified abnormal uterine and vaginal bleeding; J45.909 Unspecified asthma, uncomplicated; E03.9 Hypothyroidism, unspecified; F41.9 Anxiety disorder, unspecified; F32.A Depression, unspecified; Z88.0 Allergy status to penicillin; Z88.2 Allergy status to sulfonamides; Z88.8 Allergy status to other drugs, medicaments and biological substances; Z79.899 Other long term (current) drug therapy; Z79.2 Long term (current) use of antibiotics; Z56.0 Unemployment, unspecified; Z90.49 Acquired absence of other specified parts of digestive tract; Z98.51 Tubal ligation status; Z87.442 Personal history of urinary calculi; Z98.890 Other specified postprocedural states
CPT/HCPCS: 36415; 80053; 81001; 85007; 85025; 96360; 99285; J7030; A4353

== ENCOUNTER 2024-04-22 17:25 | Emergency (ER) | payer MEDICAID ==
[~2024-04-22] VITALS: Ht 175.3 cm; Wt 108.3 kg
[~2024-04-22 17:25] MED LIST changes: +NITR100C6 PO
[2024-04-22 20:16] LABS: BASOPHILS % (AUTO) 0.7 % (0-1); EOSINOPHILS # (AUTO) 0.2 X10'3 (0-0.9); HEMATOCRIT 35.3 % (35.0-45.0); HEMOGLOBIN 11.7 g/dl (12.0-16.0); LYMPHOCYTES # (AUTO) 0.7 X10'3 (1.1-4.8); LYMPHOCYTES % (AUTO) 17.7 % (21-51); MEAN CORPUSCULAR HEMOGLOBIN 29.7 PG (27.0-31.0); MEAN CORPUSCULAR HGB CONC 33.1 g/dL (33.0-36.5); MEAN CORPUSCULAR VOLUME 89.6 FL (78-98); MEAN PLATELET VOLUME 7.4 FL (7.4-10.4); MONOCYTES # (AUTO) 0.3 X10'3 (0-0.9); MONOCYTES % (AUTO) 6.1 % (2-12); NEUTROPHILS # (AUTO) 2.9 X10'3 (1.8-7.7); NEUTROPHILS % (AUTO) 71.5 % (42-75); PLATELET COUNT 196 X10'3 (140-440); RED BLOOD COUNT 3.94 X10'6 (4.20-5.60); RED CELL DISTRIBUTION WIDTH 18.1 % (11.5-14.5); WHITE BLOOD COUNT 4.1 X10'3 (4.5-11.0)
[2024-04-22] MEDS: ketorolac trometh 30MG/ML vial 30 MG/ML VIAL IM ONE (20:23)
[2024-04-22 20:36] LABS: ALANINE AMINOTRANSFERASE 37 U/L (12-78); ALBUMIN 3.1 G/DL (3.4-5.0); ALBUMIN/GLOBULIN RATIO 0.7 (1.1-1.5); ALKALINE PHOSPHATASE 103 IU/L (46-116); ANION GAP 8 (8-16); ASPARTATE AMINO TRANSFERASE 32 U/L (10-37); BILIRUBIN,TOTAL 0.2 MG/DL (0.1-1.0); BLOOD UREA NITROGEN 18 MG/DL (7-18); BUN/CREATININE RATIO 17.1 (10.0-20.0); CHLORIDE 103 MMOL/L (99-107); CREATININE 1.05 MG/DL (0.40-0.90); GLUCOSE 111 MG/DL (70-104); SODIUM 139 MMOL/L (135-145); TOTAL CARBON DIOXIDE 27.7 MMOL/L (24-32); TOTAL PROTEIN 7.7 G/DL (6.4-8.2); eCRCL 60 ML/MIN; eGFR 54 ML/MIN
[2024-04-22 22:01] VITALS: BP 158/80; PULSE 76; RESP 18; TEMP 98.6; O2SAT 98
[2024-04-22 22:07] LABS: STREP A SCREEN NEGATIVE (Neg)
== END 2024-04-22 22:03 | disposition home or self-care (01) ==
LOC: ER 17:26
DX: J02.8 Acute pharyngitis due to other specified organisms (principal); B97.89 Other viral agents as the cause of diseases classified elsewhere; J45.909 Unspecified asthma, uncomplicated; F41.9 Anxiety disorder, unspecified; F32.A Depression, unspecified; E03.9 Hypothyroidism, unspecified; Z88.2 Allergy status to sulfonamides; Z88.0 Allergy status to penicillin; Z91.018 Allergy to other foods; Z79.2 Long term (current) use of antibiotics; Z79.899 Other long term (current) drug therapy; Z87.442 Personal history of urinary calculi; Z98.51 Tubal ligation status; Z90.49 Acquired absence of other specified parts of digestive tract; Z56.0 Unemployment, unspecified
CPT/HCPCS: 71045; 80053; 85025; 87081; 87880; 96372; 99284; J1885

== ENCOUNTER 2024-08-12 05:32 | Emergency (ER) | payer MEDICAID ==
[~2024-08-12] VITALS: Ht 172.7 cm; Wt 112.0 kg
[2024-08-12 07:23] LABS: URINE HCG NEGATIVE (NEG)
[2024-08-12 07:29] LABS: EOSINOPHILS # (AUTO) 0.1 X10'3 (0-0.9); EOSINOPHILS % (AUTO) 1.8 % (0-6); HEMATOCRIT 34.3 % (35.0-45.0); HEMOGLOBIN 11.4 g/dl (12.0-16.0); LYMPHOCYTES # (AUTO) 0.7 X10'3 (1.1-4.8); LYMPHOCYTES % (AUTO) 20.4 % (21-51); MEAN CORPUSCULAR HEMOGLOBIN 30.6 PG (27.0-31.0); MEAN CORPUSCULAR HGB CONC 33.3 g/dL (33.0-36.5); MEAN PLATELET VOLUME 7.8 FL (7.4-10.4); MONOCYTES # (AUTO) 0.3 X10'3 (0-0.9); MONOCYTES % (AUTO) 9.4 % (2-12); NEUTROPHILS # (AUTO) 2.2 X10'3 (1.8-7.7); NEUTROPHILS % (AUTO) 67.4 % (42-75); PLATELET COUNT 181 X10'3 (140-440); RED BLOOD COUNT 3.73 X10'6 (4.20-5.60); RED CELL DISTRIBUTION WIDTH 16.7 % (11.5-14.5); WHITE BLOOD COUNT 3.2 X10'3 (4.5-11.0)
[2024-08-12 07:30] LABS: BILIRUBIN,URINE NEGATIVE (Neg); COLOR,URINE YELLOW (Yellow); GLUCOSE, URINE NEGATIVE (Neg); KETONES,URINE NEGATIVE (Neg); LEUKOCYTE ESTERASE ,URINE TRACE (Neg); NITRITES, URINE NEGATIVE (Neg); OCCULT BLOOD,URINE TRACE-INTACT (Neg); PROTEIN,URINE 100 mg/dl (Neg); UROBILINOGEN,URINE 0.2 E.U/dL (0.2-1.0)
[2024-08-12 07:34] LABS: ALANINE AMINOTRANSFERASE 40 U/L (12-78); ALBUMIN 2.9 G/DL (3.4-5.0); ALBUMIN/GLOBULIN RATIO 0.6 (1.1-1.5); ALKALINE PHOSPHATASE 87 IU/L (46-116); ANION GAP 6 (8-16); ASPARTATE AMINO TRANSFERASE 40 U/L (10-37); BILIRUBIN,TOTAL 0.4 MG/DL (0.1-1.0); BLOOD UREA NITROGEN 17 MG/DL (7-18); BUN/CREATININE RATIO 21.3 (10.0-20.0); CALCIUM 9.2 MG/DL (8.5-10.1); CHLORIDE 105 MMOL/L (99-107); GLUCOSE 128 MG/DL (70-104); LIPASE 12 U/L (16-77); SODIUM 137 MMOL/L (135-145); TOTAL CARBON DIOXIDE 26.1 MMOL/L (24-32); TOTAL PROTEIN 7.6 G/DL (6.4-8.2); eCRCL 76 ML/MIN; eGFR 73 ML/MIN
[2024-08-12 07:38] LABS: UA COLLECTION TYPE NON-SPECIFIED
[2024-08-12 07:40] LABS: CLARITY,URINE SLIGHTLY CLOUDY (Clear); WBC,URINE 30-50 /HPF (0-4)
[2024-08-12] MEDS ORDERED: iohexol 300mg/ml 100ml inj. ONE (07:40)
[2024-08-12 07:41] LABS: BACTERIA,URINE 1+ /HPF (Neg); FINE GRANULAR CAST 0-3 /LPF (NEGATIVE); RENAL CELLS, URINE FEW /HPF; SQUAMOUS EPITHELIAL CELL,UR FEW /LPF (FEW); TRANSITIONAL EPI CELLS,URINE FEW /HPF
[2024-08-12 07:42] LABS: POTASSIUM 4.5 MMOL/L (3.5-5.1)
[2024-08-12] MEDS: ketorolac trometh 30MG/ML vial 30 MG/ML VIAL IV ONE (07:52)
[2024-08-12] MEDS: cephalexin 250mg capsule PO ONE (09:06)
[2024-08-12 09:08] VITALS: BP 145/58; PULSE 70; RESP 16; O2SAT 99
[2024-08-12] MEDS ORDERED: CEPH-585 PO (09:11)
[2024-08-12 09:19] VITALS: TEMP 98.3
== END 2024-08-12 09:25 | disposition home or self-care (01) ==
LOC: ER 05:33
DX: N39.0 Urinary tract infection, site not specified (principal); J45.909 Unspecified asthma, uncomplicated; E03.9 Hypothyroidism, unspecified; F41.9 Anxiety disorder, unspecified; F32.A Depression, unspecified; Z90.49 Acquired absence of other specified parts of digestive tract; Z98.51 Tubal ligation status; Z88.2 Allergy status to sulfonamides; Z88.0 Allergy status to penicillin; Z88.6 Allergy status to analgesic agent; Z91.018 Allergy to other foods; Z79.899 Other long term (current) drug therapy; Z87.442 Personal history of urinary calculi; Z56.0 Unemployment, unspecified
CPT/HCPCS: 36415; 74177; 80053; 81001; 81025; 83690; 85025; 87088; 96374; 99285; A6222; J1885; Q9967; A6446

== ENCOUNTER 2024-08-17 07:55 | Emergency (ER) | payer MEDICAID ==
[~2024-08-17] VITALS: Ht 175.3 cm; Wt 112.0 kg
[~2024-08-17 07:55] MED LIST changes: +CEPH-585 PO
[2024-08-17 08:03] VITALS: TEMP 97.4
[2024-08-17 10:48] LABS: BASOPHILS % (AUTO) 0.6 % (0-1); EOSINOPHILS # (AUTO) 0.1 X10'3 (0-0.9); EOSINOPHILS % (AUTO) 1.6 % (0-6); HEMATOCRIT 37.1 % (35.0-45.0); HEMOGLOBIN 12.2 g/dl (12.0-16.0); LYMPHOCYTES # (AUTO) 0.6 X10'3 (1.1-4.8); LYMPHOCYTES % (AUTO) 14.8 % (21-51); MEAN CORPUSCULAR HEMOGLOBIN 30.5 PG (27.0-31.0); MEAN CORPUSCULAR HGB CONC 32.9 g/dL (33.0-36.5); MEAN CORPUSCULAR VOLUME 92.9 FL (78-98); MEAN PLATELET VOLUME 7.6 FL (7.4-10.4); MONOCYTES # (AUTO) 0.3 X10'3 (0-0.9); MONOCYTES % (AUTO) 8.1 % (2-12); NEUTROPHILS % (AUTO) 74.9 % (42-75); PLATELET COUNT 173 X10'3 (140-440); RED BLOOD COUNT 3.99 X10'6 (4.20-5.60); RED CELL DISTRIBUTION WIDTH 16.5 % (11.5-14.5)
[2024-08-17 10:56] LABS: ALANINE AMINOTRANSFERASE 42 U/L (12-78); ALBUMIN 3.2 G/DL (3.4-5.0); ALBUMIN/GLOBULIN RATIO 0.7 (1.1-1.5); ALKALINE PHOSPHATASE 88 IU/L (46-116); ANION GAP 6 (8-16); ASPARTATE AMINO TRANSFERASE 32 U/L (10-37); BILIRUBIN,TOTAL 0.4 MG/DL (0.1-1.0); BLOOD UREA NITROGEN 20 MG/DL (7-18); BUN/CREATININE RATIO 35.7 (10.0-20.0); CALCIUM 9.4 MG/DL (8.5-10.1); CHLORIDE 107 MMOL/L (99-107); CREATININE 0.56 MG/DL (0.40-0.90); GLUCOSE 124 MG/DL (70-104); POTASSIUM 4.7 MMOL/L (3.5-5.1); SODIUM 141 MMOL/L (135-145); TOTAL CARBON DIOXIDE 28.3 MMOL/L (24-32); TOTAL PROTEIN 7.6 G/DL (6.4-8.2); eCRCL 113 ML/MIN; eGFR > 90 ML/MIN
[2024-08-17 10:57] LABS: LIPASE 12 U/L (16-77)
[2024-08-17 13:13] VITALS: BP 138/90; PULSE 74; RESP 16; O2SAT 96
[2024-08-17 14:58] LABS: URINE HCG NEGATIVE (NEG)
[2024-08-17 15:08] LABS: BILIRUBIN,URINE NEGATIVE (Neg); CLARITY,URINE CLEAR (Clear); COLOR,URINE YELLOW (Yellow); GLUCOSE, URINE NEGATIVE (Neg); KETONES,URINE NEGATIVE (Neg); LEUKOCYTE ESTERASE ,URINE NEGATIVE (Neg); NITRITES, URINE NEGATIVE (Neg); OCCULT BLOOD,URINE NEGATIVE (Neg); PROTEIN,URINE 100 mg/dl (Neg); UA COLLECTION TYPE CLN CATCH MIDSTREAM; UROBILINOGEN,URINE 0.2 E.U/dL (0.2-1.0)
[2024-08-17 15:13] LABS: BACTERIA,URINE FEW /HPF (Neg); RBC,URINE 0-2 /HPF (0-2); SQUAMOUS EPITHELIAL CELL,UR MODERATE /LPF (FEW)
[2024-08-17 15:14] LABS: CAL OXALATE CRYSTALS 1+ /HPF (NEGATIVE); HYALINE CASTS 0-3 /LPF (NEGATIVE); MUCUS STRANDS FEW /LPF (Neg)
[2024-08-17] MEDS ORDERED: TRAM50TA2 PO (16:41)
== END 2024-08-17 13:00 | disposition home or self-care (01) ==
LOC: ER 07:56
DX: R10.31 Right lower quadrant pain (principal); R60.0 Localized edema; J45.909 Unspecified asthma, uncomplicated; E03.9 Hypothyroidism, unspecified; F41.9 Anxiety disorder, unspecified; F32.A Depression, unspecified; Z88.2 Allergy status to sulfonamides; Z88.0 Allergy status to penicillin; Z88.6 Allergy status to analgesic agent; Z90.49 Acquired absence of other specified parts of digestive tract; Z98.51 Tubal ligation status; Z79.899 Other long term (current) drug therapy; Z87.442 Personal history of urinary calculi; Z56.0 Unemployment, unspecified
CPT/HCPCS: 36415; 71045; 80053; 81001; 81025; 83690; 84484; 85025; 87077; 87088; 87186; 99284

== ENCOUNTER 2024-11-23 23:08 | Emergency (ER) | payer MEDICAID ==
[~2024-11-23] VITALS: Ht 172.7 cm; Wt 116.8 kg
[~2024-11-23 23:08] MED LIST changes: -LEVO50CA4 PO; +LEVO50CA5 PO
[2024-11-23 23:10] VITALS: TEMP 97.5
[2024-11-24 00:12] LABS: BASOPHILS % (AUTO) 0.6 % (0-1); EOSINOPHILS # (AUTO) 0.1 X10'3 (0-0.9); EOSINOPHILS % (AUTO) 3.3 % (0-6); HEMATOCRIT 36.4 % (35.0-45.0); HEMOGLOBIN 12.4 g/dl (12.0-16.0); LYMPHOCYTES # (AUTO) 0.6 X10'3 (1.1-4.8); LYMPHOCYTES % (AUTO) 14.1 % (21-51); MEAN CORPUSCULAR HEMOGLOBIN 29.3 PG (27.0-31.0); MEAN CORPUSCULAR VOLUME 86.2 FL (78-98); MEAN PLATELET VOLUME 7.8 FL (7.4-10.4); MONOCYTES # (AUTO) 0.3 X10'3 (0-0.9); MONOCYTES % (AUTO) 6.6 % (2-12); NEUTROPHILS # (AUTO) 3.2 X10'3 (1.8-7.7); NEUTROPHILS % (AUTO) 75.4 % (42-75); PLATELET COUNT 174 X10'3 (140-440); RED BLOOD COUNT 4.23 X10'6 (4.20-5.60); RED CELL DISTRIBUTION WIDTH 15.1 % (11.5-14.5); WHITE BLOOD COUNT 4.3 X10'3 (4.5-11.0)
--- NOTE | 2024-11-24 00:12 | Physician Documentation ---
History of Present Illness Chief Complaint: Abdominal Pain Stated Complaint: ABDOMINAL PAIN Primary Medical Doctor: Dr. Abdirashid GARZON This is a 59-year-old female with history of ulcerative colitis who presents with one day of right upper quadrant pain without fever and without palliating or provoking factors. Patient reports she has a colostomy bag due to bowel resection from ulcerative colitis. Patient reports no other acute symptoms or concerns. Additional note by Bartolo Cam DO: I took over the care of this patient from previous physician. I reviewed any previous notes available, obtain my own history, review of systems and physical examination was performed by myself. Confirms the story above. Reports that the time of onset was 630 p.m.. Approximately 6 hours prior to my examination. No obvious trigger provocation. No particular palliating or aggravating factors. Did not attempt to treat it. Describes pain as sharp, moderate to severe in its intensity. While sitting in the emergency department she noticed that the pain is worse when she is talking. Also reports blood in the toilet bowl after urinating and is not certain whether it is a blood in urine or blood with defecation. Medication Reconciliation Allergies: Coded Allergies: sulfamethoxazole (Verified Allergy, Severe, swollen mouth, 11/23/24) trimethoprim (Verified Allergy, Severe, swollen mouth, 11/23/24) corn (Unverified Allergy, Intermediate, unknown, 11/23/24) Penicillins (Unverified Allergy, Unknown, rash, SOB, SWEATING, 11/23/24) aspirin (Verified Allergy, Unknown, 11/23/24) TOLLERATED KETOROLAC 12/19/23 Uncoded Allergies: garlic (Allergy, Unknown, unknown, 06/12/13) Scheduled Apixaban (Eliquis), 1 TAB PO BID, (Reported) Cephalexin*Monohydrate* (Keflex*), 1 CAP PO QID Duloxetine HCl (Duloxetine HCl), 1 CAP PO DAILY, (Reported) Gabapentin (Neurontin), 2 CAP PO BID, (Reported) Lenvatinib Mesylate (Lenvima), 1 CAP PO DAILY, (Reported) Levofloxacin (Levofloxacin), 1 TAB PO DAILY, (Reported) Levothyroxine Sodium (Levothyroxine), 250 MCG PO DAILY, (Reported) Nitrofurantoin Monohyd/M-Cryst (Macrobid 100 mg Capsule), 1 CAP PO Q12H Scheduled PRN [Promethazine], 5 MG PO BID PRN for nausea/vomiting, (Reported) Past Medical History Past Medical History: Seizures, Asthma, *GI/HEPATOBILIARY*, Peptic Ulcer Disease, Hematuria, Kidney Stones, Hypothyroidism, MRSA Abscess, Anxiety, Depression Past Surgical History: cholecystectomy, colectomy, orthopedic surgeries, tubal ligation Patient History: FH: CVA (cerebrovascular accident) MOTHER (SMOKER AND STROKE), FH: alcoholism FATHER (ETOH ABUSE), FH: ovarian cancer sister Malignant neoplasm of endometrium MOTHER (SMOKER AND STROKE), Alcohol Use: None Drug Use: none Lives with: Spouse Lives In: Home Occupation: unemployed, disabled Review of Systems ROS 10 point review of systems was performed and unless noted above in HPI is negative for acute process/complaint. Physical Exam Vital Signs: Temperature: 97.5, Source: Oral, Heart Rate: 74, Respiratory Rate: 14, BP: 145/75, Pulse Oximetry: 97, Weight: 116.820 Physical Exam VITALS: Reviewed and as above. GENERAL: Alert, nontoxic appearing, no apparent distress. HEENT: RESPIRATORY: No increased work of breathing, no respiratory distress, speaking in full clear sentences CHEST: CV: BACK: GI: Right upper quadrant tender to palpation, bowel sounds present, nondistended, soft, other quadrants nontender to palpation MUSCULOSKELETAL: SKIN: NEURO: PSYCH: Progress Results/Orders Results/Orders Vital Signs 11/23/24 23:10 Temp 97.5 Pulse 74 Resp 14 B/P (MAP) 145/75 Pulse Ox 97 Laboratory Tests Test 11/23/24 23:48 CBC Comment Chemistry Comments Medical Decision Making Findings MSE performed in triage and patient returned to ED lobby by nursing staff to await available ED room Additional note by Bartolo Cam, DO: I took over the care of this patient from previous physician. I reviewed any previous notes available, obtain my own history, review of systems and physical examination was performed by myself. Facility Status: ED Holds, [facility] process The plan was discussed with the patient, who demonstrates clear understanding of the plan and is in agreement with the plan unless otherwise noted in the chart. All questions have been answered, all concerns were addressed unless otherwise documented. I was available throughout their ED stay for frequent reassessment and questions. Differential Diagnoses (considered and possible or likely): [Differential diagnosis considered includes acute appendicitis, acute cholecystitis, pancreatitis, gastritis, PUD, diverticulitis, mesenteric ischemia, abdominal aortic aneurysm, bowel obstruction, enteritis, colitis, fecal impaction, volvulus, IBS, inflammatory bowel disease, specific food intolerance, peritonitis, perforated viscous, malignancy, UTI, abscess, and abdominal pain NOS. Pelvic source of pain was also considered including endometritis, d ysmenorrhea, ovarian cyst, ovarian torsion, PID, TOA, cervicitis, vaginitis, or uterine fibroid. History, physical exam, and workup exclude many of the more serious causes listed above. ] ??Differential Diagnoses (considered and unlikely, not requiring evaluation currently): [Aortic/great vessels dissection was considered but it is unlikely based on absence of ripping, tearing, migratory chest pain, absence of syncope or focal neurologic deficits, physical examination indicating equal and symmetric pulses.] MDM Data Please see [facility] for the following: Independent Historians and external Records Review. Historian: [Patient] Independent Historians: ?[, record review] Medication Management: [Reviewed medication list] Social History and determinants: [Reviewed] Please see the body of the note for the following: Any independent interpretations of ECG, imaging studies. All vitals signs/haemodynamics, ordered tests were independently reviewed and interpreted by myself. Nursing triage complaint and vitals reviewed, additional nursing notes were reviewed as available and I agree unless otherwise noted or documented in contradiction in the chart Vital Signs: Independently reviewed Labs: Independently interpreted Imaging: Independently interpreted Old Medical Records: Independently reviewed, see HPI for relevant summary and information Pulse Oximetry: [98%] interpreted as [normal on room air] by me [Construction Mgr: [Regular Rate, Regular rhythm, no ectopy, NSR] reviewed and interpreted by me] Additionally notably showing: [Hemodynamics reviewed. Not febrile, not tachycardic, no evidence of hypotension respiratory distress. Laboratory studies reviewed. CBC normal chemistry notable for elevated glucose. Lipase is normal. UA shows moderate occult blood, concentration of urine, with specific gravity greater than attempted, and I high number of white blood cells in urine. This is concerning for UTI.] Tests considered but not ordered include: [Not applicable] Social Determinants of Health Impact: Patient was evaluated in [facility], [facility] [place] to healthcare due to below par ratio of patient to medical providers. [] Comorbid Conditions Impacting Present Evaluation and Care/Treatment: Diabetes Management Discussions with other Healthcare Providers: [] Treatment and Disposition Medication Management (Given or considered): []. See EMR for details Consideration for Hospitalization/Escalation/Deescalation of Care: Admission for observation has been considered, [however the patient is able to tolerate p.o., their symptoms are controlled, they are able to rely on oral medications, and their chief complaint/diagnosis can be managed on outpatient basis.] ?ED Course:?[CT shows no acute intra-abdominal process] ?Shared decision making: Patient is hemodynamically stable for discharge home with follow with their primary care provider. [ ] Specific and cautious return precautions provided and discussed with full understanding. Any incidental findings were also discussed and follow up recommendations given. [] All questions answered. Patient/family were able to verbalize back return precautio ns. Patient/family agree to plan. Copies of imaging and laboratory studies were provided. Code status:?FULL Please see the full Electronic Medical Record for full details of nursing documentation, medications list, other records of complete past medical history and conditions, vital signs, laboratory studies, and any radiologic study interpretations by radiologists. Portions of this note were completed using enosiX dictation software and as a result there may exist minor errors in spe lling. I have reviewed elements of past family and social history and agree as included in note. Departure Disposition: 01 HOME / SELF CARE / HOMELESS Impression: Primary Impression: Right sided abdominal pain Additional Impression: Hemorrhagic cystitis Condition: Improved Discharge Instructions: Urinary Tract Infection, Adult, Abdominal Pain (Nonspecific) Additional Instructions: The CT did not show explanation for your abdominal pain. He laboratory workup w as unremarkable except for evidence of urinary tract infection with a blood. This most likely explains the blood in the toilet that you so after urination. This is consistent with a urinary tract infection that can be treated with the antibiotics. Referrals: NO PRIMARY CARE PROVIDER (PCP) Prescriptions Cefpodoxime Proxetil (Cefpodoxime Proxetil) 100 Mg Tablet 1 TAB PO Q12H for 14 Days, #28 TAB 0 Refills Prov: BARTOLO ACM DO 11/24/24 Education Educated: Patient Educated regarding: diagnosis, treatment, prognosis, need for follow up Signature Scribe Signature: No scribe Attestation: This note accurately reflects clinical decisions, work performed by myself, Bartolo Cam, [facility] November 24, 2024 00:12 BARTOLO CAM DO November 24, 2024 01:42
[2024-11-24 00:17] LABS: ALANINE AMINOTRANSFERASE 26 U/L (12-78); ALBUMIN 3.4 G/DL (3.4-5.0); ALBUMIN/GLOBULIN RATIO 0.8 (1.1-1.5); ALKALINE PHOSPHATASE 128 IU/L (46-116); ANION GAP 8 (8-16); ASPARTATE AMINO TRANSFERASE 21 U/L (10-37); BILIRUBIN,TOTAL 0.3 MG/DL (0.1-1.0); BLOOD UREA NITROGEN 15 MG/DL (7-18); BUN/CREATININE RATIO 16.7 (10.0-20.0); CALCIUM 9.3 MG/DL (8.5-10.1); CHLORIDE 103 MMOL/L (99-107); GLUCOSE 173 MG/DL (70-104); LIPASE 12 U/L (16-77); POTASSIUM 3.9 MMOL/L (3.5-5.1); SODIUM 139 MMOL/L (135-145); TOTAL PROTEIN 7.8 G/DL (6.4-8.2); eCRCL 68 ML/MIN; eGFR 64 ML/MIN
[2024-11-24] MEDS ORDERED: iohexol 300mg/ml 100ml inj. ONE (02:05)
[2024-11-24 02:33] LABS: BILIRUBIN,URINE NEGATIVE (Neg); CLARITY,URINE SLIGHTLY CLOUDY (Clear); COLOR,URINE YELLOW (Yellow); GLUCOSE, URINE NEGATIVE (Neg); KETONES,URINE NEGATIVE (Neg); LEUKOCYTE ESTERASE ,URINE TRACE (Neg); NITRITES, URINE NEGATIVE (Neg); OCCULT BLOOD,URINE MODERATE (Neg); PROTEIN,URINE 100 mg/dl (Neg); UROBILINOGEN,URINE 0.2 E.U/dL (0.2-1.0)
[2024-11-24 02:37] LABS: URINE HCG NEGATIVE (NEG)
[2024-11-24 02:39] VITALS: BP 113/71; PULSE 67; O2SAT 96
[2024-11-24 02:44] LABS: UA COLLECTION TYPE CLN CATCH MIDSTREAM
[2024-11-24 02:57] LABS: RBC,URINE 0-2 /HPF (0-2); WBC,URINE 50-100 /HPF (0-4)
[2024-11-24 02:58] LABS: BACTERIA,URINE 1+ /HPF (Neg); MUCUS STRANDS FEW /LPF (Neg); SQUAMOUS EPITHELIAL CELL,UR MODERATE /LPF (FEW); YEAST FEW /HPF (NEGATIVE)
--- NOTE | 2024-11-24 03:54 | RADIOLOGY REPORT ---
Clinical History Right lower quadrant abdominal pain, history of ulcerative colitis Comparison None Technique: Contiguous axial images were acquired from the domes of the diaphragm to the pubic symphys is after the uneventful administration of IV contrast. Data is reconstructed in the sagittal and cor onal planes. All CT scans at this medical facility are performed using dose modulation techniques as appropriate t o a performed exam including the following: Automated exposure control was utilized; adjustment of th e mA and/or kV according to patient size; and use of iterative reconstruction technique. All CT studies are reported to the Dose Index Registry of the [employer]. Contrast: OMNIPAQUE 300, 100ML Radiation Dose: CTDI (mGy): 36.77; DLP (mGy-cm): 1913.85 MIGUE ALFARO, [id number] Findings: Lung bases: There is no focal consolidation. Liver: Unremarkable. Gallbladder: cholecystectomy. Kidneys: No kidney stone or hydronephrosis. bilateral renal cysts 1.1 cm on the left 1.2 cm in the ri ght Spleen: 1.5 cm low-density lesion in the spleen. Pancreas: Unremarkable. Adrenals: Unremarkable. Small bowel: No evidence of bowel obstruction. right lower quadrant ileostomy Large bowel: status post colectomy Appendix: absent Aorta: No aneurysm Bladder: Goodman catheter in the bladder. P. Vesicular inflammation. Reproductive: hysterectomy Lymphadenopathy: No enlarged lymph nodes. Bones: No displaced fracture. Peritoneum: No free air. No free fluid. Postoperative changes from ventral hernia repair Impression: 1. Goodman catheter in the bladder mild perivesicular inflammation suggest cystitis. Clinical correla tion suggested 2. Status post colectomy. 3. Right lower quadrant ileostomy. No evidence of bowel inflammation or distention. 4. Status post ventral hernia repair. 4. Indeterminate low-density lesion in the spleen measuring 1.5 cm 6. Bilateral renal cysts 7. Hysterectomy This report was electronically signed by Renae Galeano MD on 11/24/2024 3:50:36 AM.
[2024-11-24] MEDS ORDERED: CEFP100T7 PO (04:40)
[2024-11-24 04:48] VITALS: RESP 15
== END 2024-11-24 04:50 | disposition home or self-care (01) ==
LOC: ER 23:08
DX: N30.91 Cystitis, unspecified with hematuria (principal); J45.909 Unspecified asthma, uncomplicated; E03.9 Hypothyroidism, unspecified; F41.9 Anxiety disorder, unspecified; F32.A Depression, unspecified; Z88.0 Allergy status to penicillin; Z88.2 Allergy status to sulfonamides; Z90.49 Acquired absence of other specified parts of digestive tract; Z98.51 Tubal ligation status; Z93.3 Colostomy status; Z79.899 Other long term (current) drug therapy; Z87.442 Personal history of urinary calculi; Z56.0 Unemployment, unspecified
CPT/HCPCS: 36415; 74177; 80053; 81001; 81025; 83690; 85025; 87088; 99285; Q9967

== ENCOUNTER 2025-02-27 09:22 | Outpatient (CLI) | payer MEDICAID ==
[~2025-02-27 09:22] MED LIST changes: +CEFP100T7 PO
--- NOTE | 2025-02-27 14:38 | RADIOLOGY REPORT ---
EXAM: CT CT UPPER EXTREMITIES, CT CT UPPER EXTREMITIES, CT CT UPPER EXTREMITIES, CT CT UPPER EXTREMIT IES, CT CT UPPER EXTREMITIES, CT CT UPPER EXTREMITIES HISTORY: BILATERAL ARM PAIN COMPARISON: CT CT UPPER EXTREMITIES on DOS: 02/27/25, CT CT UPPER EXTREMITIES on DOS: 02/27/25, CT CT UPP ER EXTREMITIES on DOS: 02/27/25, CT CT UPPER EXTREMITIES on DOS: 02/27/25, CT CT UPPER EXTREMITIES on DOS : 02/27/25 TECHNIQUE: Axial images were obtained and reformatted in coronal and sagittal planes upper extremitie s bilaterally. All CT scans at this medical facility are performed using dose modulation techniques as appropriate t o a performed exam including the following: Automated exposure control was utilized; adjustment of th e MA and/or KV according to patient size; and use of iterative reconstruction technique. CT Dose: CTDI volume is 25 mGy. Dose-length product is 250 mGy*cm FINDINGS: Vasculature: Unremarkable. Bones/Soft Tissues: No acute abnormality. Other: None. 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 No acute fracture.
== END 2025-02-27 23:59 | disposition home or self-care (01) ==
LOC: RAD 09:22
PROVIDERS: ATTEND Physician Assistant
DX: M18.0 Bilateral primary osteoarthritis of first carpometacarpal joints (principal); M79.601 Pain in right arm; M25.531 Pain in right wrist; M79.641 Pain in right hand
CPT/HCPCS: 73200

== ENCOUNTER 2025-05-01 09:24 | Day surgery (SDC) | payer MEDICAID ==
[2025-04-26 14:06] LABS: MEAN PLATELET VOLUME 7.6 FL (7.4-10.4); PRE OP HEMATOCRIT 34.4 % (35.0-45.0); PRE OP HEMOGLOBIN 11.2 g/dL (12.0-16.0); PRE OP PLATELET COUNT 254 X10'3 (140-440); PRE OP WHITE BLOOD COUNT 5.6 10'3 (4.8-10.8); RED CELL DISTRIBUTION WIDTH 15.9 % (11.5-14.5)
[2025-04-26 14:17] LABS: CREATININE 0.73 MG/DL (0.40-0.90); PRE OP ALT 22 U/L (30-65); PRE OP ANION GAP 5 (8-16); PRE OP AST 14 U/L (10-37); PRE OP BILIRUB, TOTAL 0.3 MG/DL (0.0-1.0); PRE OP GLUCOSE 173 MG/DL (70-104); PRE OP POTASSIUM 3.6 MMOL/L (3.4-5.1); PRE OP SODIUM 139 MMOL/L (135-145); TOTAL CARBON DIOXIDE 30.9 MMOL/L (24-32); eGFR 81 ML/MIN
[~2025-05-01] VITALS: Ht 175.3 cm; Wt 107.1 kg
[2025-05-01] VITALS (8 sets, daily range): BP systolic 114–138; BP diastolic 65–90; PULSE 54–71; RESP 13–18; TEMP 98.1; O2SAT 90–98
[2025-05-01] MEDS: clindamycin-Cleocin 900mg/D5W 50 ML IV ONE (05:30)
[~2025-05-01 09:24] MED LIST changes: +BUPIVACAINE liposomal/PF 13.3 MG/ML 10mL vial IM ONE; +BUPIVAcaine 2.5mg/ml inj 50ml vial (contains preservative) ONE; +BUPIVAcaine/PF 2.5mg/ml (0.25%) 10ml vial ONE; -CEFP100T7 PO; -CEPH-585 PO; -GABA100C PO; -LENV10CA PO; -LEVO-65 PO; +LEVO100T9 PO; -LEVO50CA5 PO; +LIDOcaine 1% 30ml preserv. free vial ONE; +METF-1203 PO; -NITR100C6 PO; -PROMETHAZINE PO; +methylene blue (5mg/ml) 50mg/10ml ampul IV ONE
[2025-05-01] MEDS: ringers solution, lacted 1,000 ML IV SCH (10:55)
[2025-05-01] MEDS: gentamicin inj 400 MG in normal saline 100ml IV soln 100 ML IV ONE (10:55)
[2025-05-01] MEDS ORDERED: fentaNYL/PF 50MCG/1 ML 2ML syringe ONE (13:17)
[2025-05-01] MEDS ORDERED: midazolam 1 mg/ML 2ml injection ONE (13:17)
[2025-05-01] MEDS ORDERED: rocuronium 10mg/ml inj IV ONE (13:25)
[2025-05-01] MEDS ORDERED: dexamethasone sod phosphate 4mg/ml inj. ONE (13:26)
[2025-05-01] MEDS ORDERED: propofol inj 20 ML IV ONE (13:26)
[2025-05-01] MEDS ORDERED: ondansetron/PF 4mg/2ml inj ONE (13:26)
[2025-05-01] MEDS ORDERED: LIDOcaine 1%/PF 5ML 10 MG/ML VIAL ONE (13:26)
[2025-05-01] MEDS ORDERED: acetaminophen 1,000mg/100ml IV 100 ML IV ONE (13:27)
[2025-05-01] MEDS: methylene blue (5mg/ml) 50mg/10ml ampul IV ONE (13:45)
[2025-05-01] MEDS: BUPIVAcaine/PF 2.5 mg/ml (0.25%) 30ml vial IJ ONE (13:45)
[2025-05-01] MEDS: LIDOcaine 1% 30ml preserv. free vial IJ ONE (13:45)
[2025-05-01] MEDS ORDERED: ringers solution, lacted 1,000 ML IV SCH (14:00)
[2025-05-01] MEDS ORDERED: labetalol 20mg/4ml (5mg/ml) syringe IV PRN (14:00)
[2025-05-01] MEDS ORDERED: hydrALAZINE 20mg/ml inj. IV PRN (14:00)
[2025-05-01] MEDS ORDERED: ondansetron/PF 4mg/2ml inj IV PRN (14:00)
[2025-05-01] MEDS ORDERED: fentaNYL/PF 50MCG/1 ML 2ML syringe IV PRN ×2 (14:00)
[2025-05-01] MEDS ORDERED: morphine 4 MG/ML inj SYRINge IV PRN (14:00)
--- NOTE | 2025-05-01 15:26 | OPERATIVE REPORT ---
Operative Report Providers to CC CC: JULIO PALACIO DO ~ Date of Procedure: May 01, 2025 Pre-Operative Diagnosis: left breast cancer Post-Operative Diagnosis SAME as PRE-Op Procedure Performed left breast wireless localized lumpectomy and left axillary sentinel node biopsy Surgeon: Dr.Lauren Palacio Shipfitter Apprentice Quita Deshpande PA-C Anesthesiologist: Jose Daniel Burton Type of Anesthesia: General Findings: Left breast palpable lump inferior to primary incision to the skin, was excised Prosthetics\Implants used: The Estimated Blood Loss: Less than 5 mL Specimen Removed: 1.Left breast wire localized lumpectomy short superior long lateral double deep 2. left breast inferior margin suture vega final margin, 3. left axillary sentinel lymph node biopsy hot only, 4. left breast skin excision suture marked short superior and long lateral Description of Procedure: Show is a 60-year-old female who was diagnosed with left breast invasive ductal carcinoma. She was seen in the preoperative holding area by myself and the anesthesiologist. The left breast was marked with my initials. An IV was placed, SCDs to lower extremities, and IV antibiotics which were administered prior to the cut of surgery. She had the nuclear medicine injection this morning at [facility]. Informed consent had been obtained. She was taken to the OR placed on the table in supine position with her left arm extended. Anesthesiologist administered for general anesthesia with an LMA. The 1st the left breast was scanned with the gamma probe and a hot signal was detected in the breast and lower axilla. The JOSE basketball scout was used to scanned the breast for the tracker. It was noted at the 6:00 a.m. area inferiorly at 4 cm from the nipple. Proposed incision was made in the lower outer breast [place] area. I dissected through the deep dermal layer with the cutting on the cautery. I completely excised the area with the cautery. Specimen was removed from the cavity and oriented with short stitch superior long suture lateral double suture deep. It was placed in the specimen board and placed in the specimen x-ray machine at the two markers were identified in the center of the specimen. I excised an additional inferior margin which will suture marked the final margin. I was also placed in formalin. I turned my attention to the sentinel lymph node biopsy made the incision and lower axilla with a 15 blade and dissected through the deep layer with the cutting on the cautery. I used the gamma probe to scanned the axillary space. And one lymph node was detected and excised. It was removed and placed off the field in formalin. I additionally excised a palpable lump just inferior to the incision on the inner aspect of the skin. It was excised in completion. It was oriented with short stitch superior long suture lateral. It was placed in formalin suspicious for cancer. All cavities were irrigated and hemostasis was achieved with Bovie electrocautery. All incisions were closed with Dermabond was placed on the skin. All dressings were placed over the incisions. Patient tolerated proced ure well and taken to recovery in stable condition all needle sponge counts were correct Counts repoted as correct: Yes JULIO PALACIO DO May 01, 2025 15:26
== END 2025-05-01 16:16 | disposition home or self-care (01) ==
LOC: PAS 09:24
PROVIDERS: ATTEND Surgery
DX: C50.312 Malignant neoplasm of lower-inner quadrant of left female breast (principal); C50.812 Malignant neoplasm of overlapping sites of left female breast; E66.01 Morbid (severe) obesity due to excess calories; J44.89 Other specified chronic obstructive pulmonary disease; G47.33 Obstructive sleep apnea (adult) (pediatric); M19.90 Unspecified osteoarthritis, unspecified site; R56.9 Unspecified convulsions; Z90.710 Acquired absence of both cervix and uterus; Z98.890 Other specified postprocedural states; Z82.49 Family history of ischemic heart disease and other diseases of the circulatory system; Z83.6 Family history of other diseases of the respiratory system; Z80.41 Family history of malignant neoplasm of ovary; Z82.3 Family history of stroke
CPT/HCPCS: 19301; 36415; 38525; 76098; 80053; 82948; 85025; J0131; J1100; J1580; J2003; J2250; J2405; J2704; J3010; J3490; J7030; J7120; Q9968; Z7506; Z7508; Z7512; A4215; A4618; A6258; A6449; A7000; J0666